=== PATIENT | male | born 1945 | race Caucasian/White ===

== ENCOUNTER 2017-03-15 20:09 | Observation (INO) | payer OTHER ==
[~2017-03-15] VITALS: Ht 172.7 cm; Wt 89.5 kg
[2017-03-15 20:15] VITALS: BP 184/89; PULSE 91; RESP 16; TEMP 98.4; O2SAT 100
--- NOTE | 2017-03-15 21:02 | RADRPT ---
EXAM DATE/TIME: 03/15/2017 20:33 [place] COMPARISON: No previous studies available for comparison. INDICATIONS : Left side chest pain. MEDICAL HISTORY : None. SURGICAL HISTORY : None. ENCOUNTER: Initial ACUITY: 2 weeks PAIN SCORE: 4/10 LOCATION: Left chest FINDINGS: PA and lateral views of the chest demonstrate the lungs to be symmetrically aerated without evidence of mass, infiltrate or effusion. The cardiomediastinal contours are unremarkable. Osseous structure s are intact. CONCLUSION: 1. No active disease. Hua Velasquez MD on March 15, 2017 at 20:59 Board Certified Radiologist. This report was verified electronically.
[2017-03-15] MEDS ORDERED: MULTTAB67 PO (21:12)
[2017-03-15] MEDS ORDERED: FISHCAP4 PO (21:12)
[2017-03-15 21:13] VITALS: BP 169/116; PULSE 80; RESP 18; O2SAT 100
[2017-03-15 21:33] LABS: AUTOMATED NEUTROPHIL # 4.8 TH/MM3 (1.8-7.7); BASOPHIL # 0.1 TH/MM3 (0-0.2); BASOPHIL % 0.9 % (0.0-2.0); EOSINOPHIL # 0.3 TH/MM3 (0-0.4); EOSINOPHIL % 3.7 % (0.0-4.0); HEMATOCRIT 41.7 % (39.0-51.0); HEMOGLOBIN 14.7 GM/DL (13.0-17.0); LYMPH % 22.3 % (9.0-44.0); LYMPHOCYTE # 1.7 TH/MM3 (1.0-4.8); MEAN CELL VOLUME 94.3 FL (80.0-100.0); MEAN CORPUSCULAR HEMOGLOBIN 33.2 PG (27.0-34.0); MEAN CORPUSCULAR HGB CONC 35.2 % (32.0-36.0); MEAN PLATELET VOLUME 7.2 FL (7.0-11.0); MONO % 9.9 % (0.0-8.0); MONOCYTE # 0.8 TH/MM3 (0-0.9); NEUT % 63.2 % (16.0-70.0); PLATELET COUNT 276 TH/MM3 (150-450); RED BLOOD COUNT 4.42 MIL/MM3 (4.50-5.90); RED CELL DISTRIBUTION WIDTH 13.1 % (11.6-17.2); WHITE BLOOD COUNT 7.6 TH/MM3 (4.0-11.0)
[2017-03-15 21:37] LABS: PROTHROMBIN TIME - PATIENT 10.5 SEC (9.8-11.6)
[2017-03-15 21:43] LABS: BICARBONATE 30.4 MEQ/L (21.0-32.0); CALCIUM 8.9 MG/DL (8.5-10.1); CREATININE 1.02 MG/DL (0.60-1.30); MAGNESIUM 2.3 MG/DL (1.5-2.5)
[2017-03-15 21:48] LABS: TROPONIN I 0.02 NG/ML (0.02-0.05)
--- NOTE | 2017-03-15 22:26 | PD ---
HPI . Chest pain Chief Complaint: Chest Pain Time Seen by Provider: 21:02 Travel History International Travel<30 days: No Contact w/Intl Traveler<30days: No Traveled to known affect area: No History of Present Illness HPI This patient presents with the chief complaint of chest pain. Onset was several weeks ago. The pain comes and goes. He states that he does not have the pain daily but can sometimes have pain 2 or 3 times a day. He states that it last a varying amount of time. He has not noted any association with activity. He describes the pain as an aching sensation. He states that it is very mild. He denies any associated shortness of breath, nausea or diaphoresis. He does complain with some left shoulder pain but believes that he has a torn rotator cuff. Patient reports no chronic medical problems. He is a reformed smoker 30 years. He states that there was nothing really different today that brought into the hospital. He just decided that it was time for her to be checked out. PFSH Past Medical History Medical History: Denies Significant Hx Tetanus Vaccination: Unknown Influenza Vaccination: No Past Surgical History Other Surgery: Yes (hernia ) Social History Alcohol Use: No Tobacco Use: No Substance Use: No Allergies-Medications (Allergen,Severity, Reaction): Coded Allergies: No Known Allergies (Verified Allergy, Unknown, 03/15/17) Reported Meds & Prescriptions Reported Meds & Active Scripts Active Reported Fish Oil + D3 (Fish Oil-Cholecalciferol) 1,200-1,000 Mg-Unit Cap 1 Cap PO DAILY Multiple Vitamin 1 Tab 1 Tab PO DAILY Review of Systems Except as stated in HPI: all other systems reviewed are Neg Cardiovascular: Positive: Chest Pain or Discomfort Respiratory: No: Shortness of Breath Gastrointestinal: No: Nausea, Vomiting Musculoskeletal: Positive: Arthralgias Physical Exam Narrative GENERAL: Older man who is in no acute distress. SKIN: warm/dry. Normal color and turgor. HEAD: Normocephalic. Atraumatic. EYES: Pupils equal and round. No scleral icterus. No injection or drainage. ENT: No nasal bleeding or discharge. Mucous membranes pink and moist. NECK: Trachea midline. Full range of motion without pain.. CARDIOVASCULAR: Regular rate and rhythm. Heart sounds are normal. RESPIRATORY: No accessory muscle use. Clear to auscultation. Breath sounds equal bilaterally. GASTROINTESTINAL: Abdomen soft. Nontender. Bowel sounds present. Nondistended. MUSCULOSKELETAL: No obvious deformities. NEUROLOGICAL: Awake and alert. No obvious cranial nerve deficits. Motor grossly within normal limits. Normal speech. PSYCHIATRIC: Appropriate mood and affect; insight and judgment normal. Data Data Last Documented VS Vital Signs Date Time Temp Pulse Resp B/P (MAP) Pulse Ox O2 Delivery O2 Flow Rate FiO2 03/15/17 21:13 80 18 169/116 (133) 100 Room Air 03/15/17 20:15 98.4 Orders Orders Electrocardiogram (03/15/17 20:21) Basic Metabolic Panel (Bmp) (03/15/17 20:21) Ckmb (Isoenzyme) Profile (03/15/17 20:21) Complete Blood Count With Diff (03/15/17 20:21) Magnesium (Mg) (03/15/17 20:21) Prothrombin Time / Inr (Pt) (03/15/17 20:21) Act Partial Throm Time (Ptt) (03/15/17 20:21) Troponin I (03/15/17 20:21) Chest, Pa & Lat (03/15/17 20:21) Electrocardiogram (03/15/17 ) Labs Laboratory Tests Test 03/15/17 20:57 White Blood Count 7.6 TH/MM3 Red Blood Count 4.42 MIL/MM3 Hemoglobin 14.7 GM/DL Hematocrit 41.7 % Mean Corpuscular Volume 94.3 FL Mean Corpuscular Hemoglobin 33.2 PG Mean Corpuscular Hemoglobin Concent 35.2 % Red Cell Distribution Width 13.1 % Platelet Count 276 TH/MM3 Mean Platelet Volume 7.2 FL Neutrophils (%) (Auto) 63.2 % Lymphocytes (%) (Auto) 22.3 % Monocytes (%) (Auto) 9.9 % Eosinophils (%) (Auto) 3.7 % Basophils (%) (Auto) 0.9 % Neutrophils # (Auto) 4.8 TH/MM3 Lymphocytes # (Auto) 1.7 TH/MM3 Monocytes # (Auto) 0.8 TH/MM3 Eosinophils # (Auto) 0.3 TH/MM3 Basophils # (Auto) 0.1 TH/MM3 CBC Comment DIFF FINAL Differential Comment Prothrombin Time 10.5 SEC Prothromb Time International Ratio 1.0 RATIO Activated Partial Thromboplast Time 23.6 SEC Blood Urea Nitrogen 17 MG/DL Creatinine 1.02 MG/DL Random Glucose 149 MG/DL Calcium Level 8.9 MG/DL Magnesium Level 2.3 MG/DL Sodium Level 140 MEQ/L Potassium Level 3.7 MEQ/L Chloride Level 105 MEQ/L Carbon Dioxide Level 30.4 MEQ/L Anion Gap 5 MEQ/L Estimat Glomerular Filtration Rate 72 ML/MIN Total Creatine Kinase 62 U/L Troponin I 0.02 NG/ML MDM Medical Decision Making Medical Screen Exam Complete: Yes Emergency Medical Condition: Yes Medical Record Reviewed: Yes (this patient has no old records here) Interpretation(s) Initial EKG has a normal sinus rhythm with minimal inferior ST elevation. Repeat EKG shows no ST segment elevation. Differential Diagnosis Differential diagnosis of chest pain includes but is not limited to musculoskeletal pain, pulmonary embolism, acute coronary syndrome, pneumonia, pleurisy Narrative Course This patient presents with intermittent chest pain for the last several weeks. CBC & BMP Diagram 03/15/17 20:57 Calcium Level 8.9, Magnesium Level 2.3 Initial troponin is 0.02. Last Impressions Chest X-Ray 03/15/172020 Signed Impressions: Service Date/Time: Wednesday, March 15, 2017 20:33 - CONCLUSION: 1. No active disease. Hua Velasquez MD This patient is agreeable to admission to the chest pain center for further evaluation of his intermittent chest pain. Diagnosis Primary Impression: Chest pain Qualified Codes: R07.9 - Chest pain, unspecified Admitting Information Admitting Physician Requests: Observation Condition: Stable Shakila Benton MD Mar 15, 2017 22:26
[2017-03-15] MEDS ORDERED: MORPHINE SULFATE 4 MG/ML INJ IV PUSH PRN (22:30)
[2017-03-15] MEDS ORDERED: SODIUM CHLORIDE 0.9% FLUSH 10 ML FLUSH IV FLUSH PRN (22:30)
[2017-03-15] MEDS ORDERED: ONDANSETRON HCL 4 MG/2 ML VIAL IV PUSH PRN (22:30)
[2017-03-15] MEDS ORDERED: NITROGLYCERIN 0.4 MG SL 25 TABS/BTL SL PRN (22:30)
[2017-03-15 23:04] VITALS: BP 176/87; PULSE 67; RESP 16; O2SAT 98
[2017-03-15] MEDS: SODIUM CHLORIDE 0.9% FLUSH 10 ML FLUSH IV FLUSH SCH (23:12)
[2017-03-15] MEDS: METOPROLOL TARTRATE 25 MG TAB PO SCH (23:13)
[2017-03-15] MEDS ORDERED: IOHEXOL 350 MG/ML 50 ML BTL (for Cath Lab) OTHER ONE (23:45)
[2017-03-15] MEDS ORDERED: IOHEXOL 350 MG/ML 100 ML BTL (for Cath Lab) OTHER ONE (23:45)
[2017-03-16] VITALS (19 sets, daily range): BP systolic 117–164; BP diastolic 58–87; PULSE 50–117; RESP 16–20; TEMP 97.8–98.7; O2SAT 95–98
--- NOTE | 2017-03-16 00:22 | EKG ---
Date Performed: 03/15/2017 Time Performed: 20:46:55 PTAGE: 71 years EKG: Sinus rhythm PROBABLE INFERIOR MYOCARDIAL INFARCTION ABNORMAL ECG NO PREVIOUS TRACING DOCTOR: Nakul English Interpretating Date/Time 03/16/2017 00:20:48
[2017-03-16 04:12] LABS: TROPONIN I 0.16 NG/ML (0.02-0.05)
[2017-03-16 08:47] LABS: TROPONIN I 0.23 NG/ML (0.02-0.05)
[2017-03-16] MEDS ORDERED: ASPIRIN 325 MG TAB PO SCH (09:00)
[2017-03-16] MEDS: METOPROLOL TARTRATE 25 MG TAB PO SCH ×2 (09:04→21:00)
[2017-03-16] MEDS: SODIUM CHLORIDE 0.9% FLUSH 10 ML FLUSH IV FLUSH SCH ×2 (09:04→21:00)
--- NOTE | 2017-03-16 09:20 | HHI.HP ---
[facility] Chico Esquivel MD Admission Diagnosis chest pain Diagnoses: Chief Complaint: chest pain Travel History International Travel<30 Days: No Contact w/Intl Traveler <30 Da: No Traveled to Known Affected Are: No History of Present Illness Written by Andie Centeno, acting as scribe for Dr. Dlil on 03/16/17 at 09: 14. 71-year-old male with history of prior tobacco use quit 30 years ago, otherwise healthy, presents with several weeks of intermittent chest pains. The chest pain is located at the left anterior chest without radiation, described as intermittent 1-2 out of 10 "achy" pain; no associated dyspnea, diaphoresis, or nausea/vomiting. The duration of the pain varies, could last few minutes to an hour. He does not notice the pain worse with any exertion. He states the pain can come on at any time. He did not try any medications for relief of the pain. He also reports chronic left shoulder pain [id number] after a torn rotator cuff. He denies any recent injury. He denies any fever/chills, cough, congestion, leg swelling, weight gain, abdominal pain, or urinary complaints. Denies any recent travel. He denies any history of hypertension or diabetes. He denies any other medical complaints at this time. Review of Systems Except as stated in HPI: all other systems reviewed are Neg Past Family Social History Past Medical History Chronic left shoulder pain secondary to rotator cuff injury Past Surgical History Umbilical hernia repair Right eye cataract surgery Reported Medications Fish Oil + D3 (Fish Oil-Cholecalciferol) 1,200-1,000 Mg-Unit Cap 1 Cap PO DAILY Multiple Vitamin 1 Tab 1 Tab PO DAILY Allergies: Coded Allergies: No Known Allergies (Verified Allergy, Unknown, 03/15/17) Active Ordered Medications Current Medications Medications (Trade) Dose Ordered Sig/Rambo Route Start Time Stop Time Status Last Admin (NS Flush) 2 ml UNSCH PRN IV FLUSH 03/15/17 22:30 (NS Flush) 2 ml BID IV FLUSH 03/15/17 22:30 03/16/17 09:04 (Morphine Inj) 2 mg Q4H PRN IV PUSH 03/15/17 22:30 (Zofran Inj) 4 mg Q6H PRN IV PUSH 03/15/17 22:30 (Lopressor) 25 mg Q12H PO 03/15/17 22:30 03/16/17 09:04 (Nitrostat Sl) 0.4 mg Q5M PRN SL 03/15/17 22:30 (Aspirin) 325 mg DAILY PO 03/16/17 09:00 03/16/17 09:05 Family History Grandfather with stroke Denies any family history of heart disease Social History Smoked tobacco 3/4 to 1PPD for 20 years, quit 30years ago Denies any alcohol or illicit drug use Physical Exam Vital Signs Vital Signs Date Time Temp Pulse Resp B/P (MAP) Pulse Ox O2 Delivery O2 Flow Rate FiO2 03/16/17 07:56 74 03/16/17 07:53 97.8 65 18 144/77 (99) 95 03/16/17 02:49 62 03/16/17 02:47 98.2 117 20 164/83 (110) 98 03/15/17 23:04 67 16 176/87 (116) 98 Room Air 03/15/17 21:13 100 21 03/15/17 21:13 80 18 169/116 (133) 100 Room Air 03/15/17 20:15 98.4 91 16 184/89 (120) 100 Room Air Physical Exam GENERAL: Well-nourished, well-developed male patient in [facility]. SKIN: Warm and dry. No rash. HEAD: Normocephalic. Atraumatic. EYES: Pupils equal and round. No scleral icterus. No injection or drainage. ENT: No nasal bleeding or discharge. Mucous membranes pink and moist. NECK: Supple. Trachea midline. CARDIOVASCULAR: Regular rate and rhythm. S1, S2 noted. No murmur appreciated. RESPIRATORY: No accessory muscle use. Clear to auscultation. Breath sounds equal bilaterally. GASTROINTESTINAL: Abdomen soft, non-tender, nondistended. Normoactive bowel sounds x4. MUSCULOSKELETAL: No obvious deformities. Extremities without clubbing, cyanosis , or edema. NEUROLOGICAL: Awake and alert. No obvious cranial nerve deficits. Motor grossly within normal limits. Moves all extremities spontaneously. Normal speech. PSYCHIATRIC: Appropriate mood and affect; insight and judgment normal. Laboratory Laboratory Tests Test 03/15/17 20:57 03/16/17 03:30 03/16/17 08:12 White Blood Count 7.6 Red Blood Count 4.42 Hemoglobin 14.7 Hematocrit 41.7 Mean Corpuscular Volume 94.3 Mean Corpuscular Hemoglobin 33.2 Mean Corpuscular Hemoglobin Concent 35.2 Red Cell Distribution Width 13.1 Platelet Count 276 Mean Platelet Volume 7.2 Neutrophils (%) (Auto) 63.2 Lymphocytes (%) (Auto) 22.3 Monocytes (%) (Auto) 9.9 Eosinophils (%) (Auto) 3.7 Basophils (%) (Auto) 0.9 Neutrophils # (Auto) 4.8 Lymphocytes # (Auto) 1.7 Monocytes # (Auto) 0.8 Eosinophils # (Auto) 0.3 Basophils # (Auto) 0.1 CBC Comment DIFF FINAL Differential Comment Prothrombin Time 10.5 Prothromb Time International Ratio 1.0 Activated Partial Thromboplast Time 23.6 Blood Urea Nitrogen 17 Creatinine 1.02 Random Glucose 149 Calcium Level 8.9 Magnesium Level 2.3 Sodium Level 140 Potassium Level 3.7 Chloride Level 105 Carbon Dioxide Level 30.4 Anion Gap 5 Estimat Glomerular Filtration Rate 72 Total Creatine Kinase 62 66 59 Troponin I 0.02 0.16 0.23 Result Diagram: 03/15/17205603/15/172056 Imaging Last Impressions Chest X-Ray 03/15/172020 Signed Impressions: Service Date/Time: Wednesday, March 15, 2017 20:33 - CONCLUSION: 1. No active disease. Hua Velasquez MD Caprini VTE Risk Assessment Caprini VTE Risk Assessment: Mod/High Risk (score >= 2) Caprini Risk Assessment Model Point Value = 1 Point Value = 2 Point Value = 3 Point Value = 5 Age 41-60 Minor surgery BMI > 25 kg/m2 Swollen legs Varicose veins or History of unexplained or recurrent spontaneous Oral contraceptives or hormone replacement Sepsis (< 1 month) Serious lung disease, including pneumonia (< 1 month) Abnormal pulmonary function Acute myocardial infarction Congestive heart failure (< 1 month) History of inflammatory bowel disease Medical patient at bed rest Age 61-74 Arthroscopic surgery Major open surgery (> 45 min) Laparoscopic surgery (> 45 min) Malignancy Confined to bed (> 72 hours) Immobilizing plaster cast Central venous access Age >= 75 History of VTE Family history of VTE Factor V Leiden Prothrombin [id number] Lupus anticoagulant Anticardiolipin antibodies Elevated serum homocysteine Heparin-induced thrombocytopenia Other congenital or acquired thrombophilia Stroke (< 1 month) Elective arthroplasty Hip, pelvis, or leg fracture Acute spinal cord injury (< 1 month) Prophylaxis Regimen Total Risk Factor Score Risk Level Prophylaxis Regimen 0-1 Low Early ambulation 2 Moderate Order ONE of the following: *Sequential Compression Device (SCD) *Heparin 5000 units SQ BID 3-4 Higher Order ONE of the following medications: *Heparin 5000 units SQ TID *Enoxaparin/Lovenox 40 mg SQ daily (WT < 150 kg, CrCl > 30 mL/min) *Enoxaparin/Lovenox 30 mg SQ daily (WT < 150 kg, CrCl > 10-29 mL/min) *Enoxaparin/Lovenox 30 mg SQ BID (WT < 150 kg, CrCl > 30 mL/min) AND/OR *Sequential Compression Device (SCD) 5 or more Highest Order ONE of the following medications: *Heparin 5000 units SQ TID (Preferred with Epidurals) *Enoxaparin/Lovenox 40 mg SQ daily (WT < 150 kg, CrCl > 30 mL/min) *Enoxaparin/Lovenox 30 mg SQ daily (WT < 150 kg, CrCl > 10-29 mL/min) *Enoxaparin/Lovenox 30 mg SQ BID (WT < 150 kg, CrCl > 30 mL/min) AND *Sequential Compression Device (SCD) Assessment and Plan Problem List: (1) NSTEMI (non-ST elevated myocardial infarction) ICD Code: I21.4 - Non-ST elevation (NSTEMI) myocardial infarction (2) Chest pain ICD Code: R07.9 - Chest pain, unspecified Status: Acute Assessment and Plan 71-year-old male with history of prior tobacco use quit 30 years ago, otherwise healthy, presents with several weeks of intermittent chest pains. NSTEMI: Chest pain with elevated troponins 0.02 --> 0.16 --> 0.23. EKG reviewed , shows some changes in inferior leads, otherwise no acute ST elevation/ depression. -Give aspirin, metoprolol, statin, nitro prn, IV morphine prn, O2 prn -Check lipid panel, HgbA1c -Monitor on telemetry -Consult cardiology, Dr. Velasquez plan for cardiac catheterization Hypertension: BP elevated at 184/89 upon arrival. No history of hypertension per patient. -Started on metoprolol 25mg bid as above -Monitor BP, adjust antihypertensives as needed DVT Prophylaxis: teds/SCDs Discussed Condition With Patient, Nurse, Charge Nurse This note was transcribed by scott Centeno. I, Dr. Damien Dill personally performed the history, physical exam, and medical decision making; and confirmed the accuracy of the information in the transcribed note. Authenticated by Dr. Damien Dill on 03/16/17 at 09:22. Problem Qualifiers (1) Chest pain: Qualified Codes: R07.9 - Chest pain, unspecified Andie Centeno PA-C Mar 16, 2017 09:20 Damien Dill MD Mar 16, 2017 09:22
[2017-03-16 10:18] LABS: CHOLESTEROL/ HDL RATIO 3.26 RATIO; HDL CHOLESTEROL 49.6 MG/DL (40.0-60.0)
--- NOTE | 2017-03-16 10:35 | PD.CONS ---
HPI Consult Requested By Primary Care Physician Chico Esquivel MD History of Present Illness 71-year-old male former smoker, otherwise healthy, presents with several weeks of intermittent chest pains. The chest pain is located at the left anterior chest with radiation to left shoulder described as intermittent 1-2/10 achy pain ; no associated dyspnea, diaphoresis, or nausea/vomiting. The duration of the pain varies, could last few minutes to an hour. He does not notice the pain worse with any exertion. He denies any recent injury. He denies any fever/chills , cough, congestion, leg swelling, weight gain, abdominal pain, or urinary complaints. Denies any recent travel. He denies any history of hypertension or diabetes. He does reports increase levels of stress mostly due to his . EKG SR with inferior ST changes and Troponin trending up. Review of Systems Consitutional: DENIES: Fatigue, Fever, Chills, Weight gain, Weight loss Eyes: DENIES: Amaurosis Fugax, Change in vision HEENT: DENIES: Lightheadedness, Change in hearing Cardiovascular: COMPLAINS OF: See HPI, Chest pain, DENIES: Palpitations, Syncope, Tachycardia Gastrointestinal: DENIES: Nausea, Vomiting, Change in bowel habits, Reflux, Bloody stools, Melena Genitourinary: DENIES: Urinary incontinence, Difficulty voiding Integumentary: DENIES: Rash Neurologic: DENIES: Tingling or numbness, Memory problems, Poor Balance, Stroke symptoms Musculoskeletal: DENIES: Joint pain, Muscle pain, Limited range of motion, Back pain Psychiatric: DENIES: Anxiety, Depression, Sleep disturbances Hematologic: DENIES: Bruising tendencies, Bleeding tendencies Endocrine: DENIES: Weight gain, Weight loss, Thyroid disease Past Family Social History Allergies: Coded Allergies: No Known Allergies (Verified Allergy, Unknown, 03/15/17) Past Medical History Chronic left shoulder pain Past Surgical History Umbilical hernia repair Right eye cataract surgery Reported Medications Reported Meds & Active Scripts Active Reported Fish Oil + D3 (Fish Oil-Cholecalciferol) 1,200-1,000 Mg-Unit Cap 1 Cap PO DAILY Multiple Vitamin 1 Tab 1 Tab PO DAILY Active Ordered Medications Current Medications Medications (Trade) Dose Ordered Sig/Rambo Route Start Time Stop Time Status Last Admin (NS Flush) 2 ml UNSCH PRN IV FLUSH 03/15/17 22:30 (NS Flush) 2 ml BID IV FLUSH 03/15/17 22:30 03/16/17 09:04 (Morphine Inj) 2 mg Q4H PRN IV PUSH 03/15/17 22:30 (Zofran Inj) 4 mg Q6H PRN IV PUSH 03/15/17 22:30 (Lopressor) 25 mg Q12H PO 03/15/17 22:30 03/16/17 09:04 (Nitrostat Sl) 0.4 mg Q5M PRN SL 03/15/17 22:30 (Aspirin) 325 mg DAILY PO 03/16/17 09:00 03/16/17 09:05 Family History Grandfather with stroke Denies any family history of heart disease Social History Smoked tobacco 3/4 to 1PPD for 20 years, quit 30years ago Denies any alcohol or illicit drug use Physical Exam Vital Signs Vital Signs Date Time Temp Pulse Resp B/P (MAP) Pulse Ox O2 Delivery O2 Flow Rate FiO2 03/16/17 07:56 74 03/16/17 07:53 97.8 65 18 144/77 (99) 95 03/16/17 02:49 62 03/16/17 02:47 98.2 117 20 164/83 (110) 98 03/15/17 23:04 67 16 176/87 (116) 98 Room Air 03/15/17 21:13 100 21 03/15/17 21:13 80 18 169/116 (133) 100 Room Air 03/15/17 20:15 98.4 91 16 184/89 (120) 100 Room Air Physical Exam GENERAL: Well-nourished, well-developed patient. SKIN: Warm and dry. HEAD: Normocephalic. EYES: No scleral icterus. No injection or drainage. NECK: Supple, trachea midline. No JVD or lymphadenopathy. CARDIOVASCULAR: Regular rate and rhythm without murmurs, gallops, or rubs. RESPIRATORY: Breath sounds equal bilaterally. No accessory muscle use. GASTROINTESTINAL: Abdomen soft, non-tender, nondistended. EXTREMITIES: No cyanosis, or edema. NEUROLOGICAL: Awake, alert, and oriented x 3. Non-focal. Laboratory Laboratory Tests Test 03/15/17 20:57 03/16/17 03:30 03/16/17 08:12 White Blood Count 7.6 Red Blood Count 4.42 Hemoglobin 14.7 Hematocrit 41.7 Mean Corpuscular Volume 94.3 Mean Corpuscular Hemoglobin 33.2 Mean Corpuscular Hemoglobin Concent 35.2 Red Cell Distribution Width 13.1 Platelet Count 276 Mean Platelet Volume 7.2 Neutrophils (%) (Auto) 63.2 Lymphocytes (%) (Auto) 22.3 Monocytes (%) (Auto) 9.9 Eosinophils (%) (Auto) 3.7 Basophils (%) (Auto) 0.9 Neutrophils # (Auto) 4.8 Lymphocytes # (Auto) 1.7 Monocytes # (Auto) 0.8 Eosinophils # (Auto) 0.3 Basophils # (Auto) 0.1 CBC Comment DIFF FINAL Differential Comment Prothrombin Time 10.5 Prothromb Time International Ratio 1.0 Activated Partial Thromboplast Time 23.6 Blood Urea Nitrogen 17 Creatinine 1.02 Random Glucose 149 Calcium Level 8.9 Magnesium Level 2.3 Sodium Level 140 Potassium Level 3.7 Chloride Level 105 Carbon Dioxide Level 30.4 Anion Gap 5 Estimat Glomerular Filtration Rate 72 Total Creatine Kinase 62 66 59 Troponin I 0.02 0.16 0.23 Triglycerides Level 80 Cholesterol Level 162 LDL Cholesterol 96 HDL Cholesterol 49.6 Cholesterol/HDL Ratio 3.26 Result Diagram: 03/15/17205603/15/172056 Imaging Last Impressions Chest X-Ray 03/15/172020 Signed Impressions: Service Date/Time: Wednesday, March 15, 2017 20:33 - CONCLUSION: 1. No active disease. Hua Velasquez MD Assessment and Plan Problem List: (1) Chest pain ICD Codes: R07.9 - Chest pain, unspecified Status: Acute Plan: 71 y/o M with signs and symptoms concerning for ACS. He remains chest pain free and hemodynamically stable. Recommendation: Keep NPO for LHC +/- PCI ASA Heparin drip Risk benefits of LHC +/- PCI including but not limited to neurovascular trauma, bleeding, renal failure, stroke, emergent cardiac surgery and , have been explain to patient. He understands and agreed to proceed. Thank for the opportunity to participate in the care of this patient Further therapy to be determine Problem Qualifiers (1) Chest pain: Qualified Codes: R07.9 - Chest pain, unspecified Boris Hathaway MD Mar 16, 2017 10:35
[2017-03-16] MEDS ORDERED: HEPARIN-NS/PF INJ 1,000 ML ONE (11:51)
[2017-03-16] MEDS ORDERED: NITROGLYCERIN INJ 5 ML ONE (11:52)
[2017-03-16] MEDS ORDERED: MIDAZOLAM HCL 2 MG/2 ML VIAL ONE ×2 (11:52→12:09)
[2017-03-16] MEDS ORDERED: HEPARIN SODIUM - IV 10,000 UNITS/10 ML VIAL ONE (11:52)
[2017-03-16] MEDS ORDERED: VERAPAMIL HCL 5 MG/2 ML VIAL ONE (11:57)
[2017-03-16] MEDS ORDERED: TICAGRELOR 90 MG TAB PO ONE ×2 (13:08→14:30)
[2017-03-16] MEDS ORDERED: SODIUM CHLOR 0.9% 1000 ML INJ 1,000 ML IV SCH (13:19)
--- NOTE | 2017-03-16 13:22 | CATHPROC ---
gir[employer] HIS Report Study Information Study Number Admission Scheduled Start Study Start [id number] Mar 15 2017 11:44PM 03/16/2017 Mar 16 2017 11:17AM [facility] Cardiac Catheterization Admit Source Facility Department Emergency department [facility] - Paper Handler Physician and Clinical Staff Initial Boris John E Learning Designer Aleshia Ashton,MARIA ISABEL E Learning Designer Coretta Navarrete BSN Recorder Miguelangel Haywood,RT(R) Scrub Gurinder Monae,RT(R) Procedures Performed Procedure Location (Site) Vessel Name Coronary Angiograms LCA Left Coronary Coronary Angiograms RCA Right Coronary Drug Eluting Inflatio Drug Eluting Inflatio RCA Mid Right Coronary L Heart Cath LV Gram-hand inj. LV LV Ventricle PTCA RCA Mid Right Coronary Wire insertion Fem Art (right) Femoral Art Wire insertion Radial (right) Radial Art. Equipment Time Brooch And Bracelet Maker Description Size Mfg Part Number Used/Scraped COPILOT VALVE, BLEEDBACK [id number] 12:04 [employer] Used CONTROL *[id number] WIRE, BALANCE MIDDLEWEIGHT [id number] 12:53 [employer] 190CM Used 190CM *[id number] TRANSDUCER, TRUWAVE [id number] 11:18 RAY RUBIN * Used W/STOCKCOCK *[id number] BALLOON, 1.2 12MM EMERGE 12:28 [employer] 1.2 12MM [id number] [place] [id number] 12:48 [employer] BALLOON, 2.0 12MM EMERGE MR 2.0 12MM Used *[id number] 12:42 [employer] BALLOON, 2.5 12MM EMERGE MR 2.5 12MM Used *[id number] 12:42 [employer] BALLOON, 2.5 12MM EMERGE MR 2.5 12MM Used *[id number] [address] 12:18 [employer] BALLOON, 2.5 12MM EMERGE MR 2.5 12MM Used *[id number] [address] 12:38 [employer] BALLOON, 3.0 12MM EMERGE MR 3.0 12MM Used *[id number] 12:20 [employer] CATHETER, FR6 GUIDEZILLA II FR 6 [id number] Used 12:31 [employer] STENT, SYNERGY 3.5 X 16MM [id number] Used [id number] 12:17 [employer] WIRE, MARVEL 190CM 190CM Used *[id number] 85112-970 12:09 [employer] WIRE, ANAHYURAI 190CM 190CM Used *[id number] *[phone] *[id number] 11:18 MEDLINE [employer] PACK, CCL CUSTOM * Used *[id number] 11:18 [employer] SUPPORT, ARTERIAL ADULT 73235 *8588760 Used [id number] 11:55 MEDTRONIC JR 4.0 DXTERITY CATHETER FR 5 Used *[id number] 12:36 VT Silicon 30 JOANA INDEFLATOR Used *[id number] BAND, RADIAL COMPRESSION TR [id number] 13:04 VT Silicon 29CM Used LARGE 29 *[id number] BAND, RADIAL COMPRESSION TR [id number] 12:12 VT Silicon 29CM Used LARGE 29 *[id number] 11:18 VT Silicon WIRE, 3MMJ .035 180CM 180CM Used *[id number] 11:18 NAMIC MANIFOLD, 4 PORT * Used *5402040 11:18 NYCOMED OMNIPAQUE, 350 MG, 150ML 150ML [id number] Used [id number] 11:18 [facility] BLANKET,WARM AIR CCL * Used *[id number] SHEATH, FR6 TRANSRADIAL [id number] 11:18 The Gluten Free Gourmet FR 6 Used SLENDER 10CM *[id number] Equipment Model, Serial, Lot Number and Expiration Data Description Model Number Serial Number Lot Number Expiration Date BALLOON, 2.0 12MM EMERGE MR [id number] 10-05-2019 BALLOON, 2.5 12MM EMERGE MR [id number] 10-19-2019 BALLOON, 2.5 12MM EMERGE MR [id number] 10-19-2019 BALLOON, 2.5 12MM EMERGE MR [id number] 05-24-2019 BALLOON, 3.0 12MM EMERGE MR [id number] 05-26-2019 CATHETER, FR6 GUIDEZILLA II [id number] 12-30-2018 STENT, SYNERGY [id number] 12-20-2017 WIRE, ANAHYURAI 190CM [id number] 11-16-2019 History: Current Medications Medication Dosage/Unit Route Frequency Last Date/Time Taken ASA LOPRESSOR History: Allergies Allergy Reaction No Known Allergies History: Risk Factors Family History of Hypertension Dyslipidemia Previous AL Previous Heart Failure Premature CAD No No No No No Prior Valve Prior PCI Prior CABG Surgery No No No Cerebrovascular Peripheral Artery Chronic Lung On Dialysis Diabetes Disease Disease Disease No No No No No History: Symptoms/Diagnosis Selection Items Chest pain History: Stress Tests Stress or Imaging Studies Performed No History: Other Current Smoker Method Quit Packs a Day Years Used Pack Years No Cigarettes 30 Years Ago 1 20 20 Labs Hgb (g/dl) Hct (%) WBC (l/cumm) Platelets (thousands) 11.60-17.00 35.00-51.00 4.00-11.00 150.00-450.00 14.7 41.7 7.6 276 Glucose (mg/dl) BUN (mg/dl) Creatinine (mg/dl) BUN:Creatinine (1:x) 74.00-106.00 7.00-18.00 0.50-1.30 10.00-20.00 149 17 1.0 17 Na (meq/l) K (meq/l) 136.00-145.00 3.50-5.10 140 3.7 INR (PTT:PT) 0.90-1.10 1 Troponin I (ng/ml) Troponin T (ng/ml) CPK (u/l) 0.02-0.05 0.40-2.10 26.00-308.00 0.16 0.23 62 Medication Medication Total Dose (Bolus/Oral) Medication Total Dosage/Unit 1% XYLOCAINE 20 mL BRILLINTA 180 mg FENTANYL 100 mcg HEPARIN 5000 units NTG (IC) 200 mcg OXYGEN 2 l/min RADIAL COCKTAIL 5 mL (Bolus) VERSED 4 mg Medications (Bolus/Oral) Medication Time Given Dosage/Unit Administered By Reason VERSED 03/16/2017 11:58:31 AM 2 mg Alehsia Ashton 2 mg VERSED given in lab by Aleshia Ashton, RN via Peripheral IV. FENTANYL 03/16/2017 11:59:41 AM 50 mcg Aleshia Ashton 50 mcg FENTANYL given in lab by Aleshia Ashton, MARIA ISABEL via Peripheral IV. 1% XYLOCAINE 03/16/2017 11:59:51 AM 20 mL Velasquez-Toyin, Boris 20 mL 1% XYLOCAINE given in lab by Boris Hathaway via Subcutaneous. RADIAL COCKTAIL 03/16/2017 12:00:20 PM 5 mL (Bolus) Velasquez-Toyin, Boris 5 mL (Bolus) RADIAL COCKTAIL given by Boris Hathaway in Right Radial via Radial. Using [Solution N yareli]. 2.5 verapamil, 2500 heparin , 200 nitro HEPARIN 03/16/2017 12:10:20 PM 5000 units Aleshia Ashton 5000 units HEPARIN given by Aleshia Ashton RN via Peripheral IV. VERSED 03/16/2017 12:11:22 PM 2 mg Aleshia Ashton 2 mg VERSED given by Aleshia Ashton RN via Peripheral IV. FENTANYL 03/16/2017 12:12:04 PM 50 mcg Aleshia Ashton 50 mcg FENTANYL given by Aleshia Ashton RN via Peripheral IV. OXYGEN 03/16/2017 12:13:43 PM 2 l/min Aleshia Ashton 2 l/min OXYGEN given by Aleshia Ashton RN via Nasal. NTG (IC) 03/16/2017 12:30:24 PM 100 mcg Gurinder Monae 100 mcg NTG (IC) given in lab by Gurinder Monae RT(R) in Right Radial via Intra-coronary. NTG (IC) 03/16/2017 1:02:49 PM 100 mcg Gurinder Monae 100 mcg NTG (IC) given in lab by Gurinder Monae RT(R) via Intra-coronary. BRILLINTA 03/16/2017 1:10:46 PM 180 mg Coretta Nvaarrete 180 mg BRILLINTA given in lab by Coretta Navarrete BSN in Per mouth via Oral. Medication (Drip) Medication Time Given Dosage/Unit Concentration/Unit Diluent (ml) Solution IV Solutions 03/16/2017 11:35:30 AM 0 mL (IV) 500 NaCl .9 IV Solutions given in lab by Aleshia Ashton RN in Left Antecubital via Peripheral IV. Pump/Drip Joseph w = 20 ml/hr using NaCl .9. Initial Case Assessment Cardiovascular HR Rhythm NIBP Chest Pain 61 Sinus 152/79 0 Edema Present Skin color Skin None Normal Warm Dry Circulatory - Right Pulses Dorsalis Pedis Femoral Radial 2 2 2 Scale (0,1,2,3,4,d) Scale (0,1,2,3,4,d) Neurological State Oriented to time-place- Alert Moves all extremities person Respiration - General Respiration Rate SpO2 (%) O2 (lpm) (B/min) 33 97 0 Chronological Log Time Study Chronological Log 11:35:16 Patient arrived via Bed. 11:35:16 Patient Name, D.O.B, / Armband Verified By R.N. 11:35:17 Consent signed by the physician and the patient and verified by the Paper Handler staff. 11:35:18 Pre-op and post- op instructions given; patient acknowledges understanding of instructions. 11:35:18 Verbal Stimulation=2 Physical Stimulation=2 Airway=2 Respiration=2 TOTAL=8. (0=absent, 1=li mited, 2=present) 11:35:19 Presedation assessment performed by Paper Handler RN. 11:35:22 Allens test performed on the right radial and ulnar artery. 11:35:25 Patient has been NPO for Less than 6Hrs. 11:35:26 Skin Breakdown- none per patient. 11:35:27 Patient Warmer Placed on the Table. 11:35:27 Apolinar Prominences Protected 11:35:28 IV Warmer Connected To Patient. 11:35:29 A # 20 IV was noted in the Antecubital (left). Grade = 0 IV Solutions given in lab by Aleshia Ashton RN in Left Antecubital via Peripheral IV. Pump/Dr ip Flow = 20 ml/hr using 11:35:30 NaCl .9. 11:35:34 History and physical on the chart or being dictated. Assessment: Initial Case, HR=61 BPM, Rhythm=Sinus, PNWG=241/79 mmhg, Chest Pain=0, Edema=None, Color=Normal, Skin = Warm, Dry 11:46:36 Right Pulses: Patrice Ped=2, Femoral=2, Radial=2 Neurological: State=Alert, Ox3, CRAIG Respiration: Resp=33 B/min, SpO2=97 %, O2=0 lpm Vitals capture started with the following parameters, Patient=Adult, Interval=5 min, Initial Pr zhuuwq=027 mmHg, 11:46:39 Deflation Rate=5 mmHg, Cuff placed on Right Arm 11:47:00 Reference ECG taken 11:47:21 Right Radial and groin(s) prepped with 2% chlorhexidine, and draped after a 3 min. waiting time. 11:48:15 HR=62 bpm, LELF=969/79 mmhg, SpO2=98.0 %, Resp=25 B/min, Pain=0, Gilmer=10, Arora=2 11:51:32 Pressure channel 1 zeroed. 11:52:20 HR=68 bpm, UXLC=407/82 mmhg, SpO2=97.0 %, Resp=12 B/min, Pain=0, Gilmer=10, Arora=2 11:52:37 MD paged 11:55:48 MD arrived. 11:57:19 HR=60 bpm, JHOV=203/90 mmhg, SpO2=96.0 %, Resp=15 B/min, Pain=0, Gilmer=10, Arora=2 11:58:31 2 mg VERSED given in lab by Aleshia Ashton, MARIA ISABEL via Peripheral IV. Time Out. Correct patient, correct procedure, correct physician, power injector not loaded with contrast with surgical 11:59:10 team present. Time Out Concurred by MD and individual staff in procedure. 11:59:26 Case Start 11:59:41 50 mcg FENTANYL given in lab by Aleshia Ashton, MARIA ISABEL via Peripheral IV. 11:59:51 20 mL 1% XYLOCAINE given in lab by Boris Hathaway via Subcutaneous. 11:59:59 Access site was Radial Artery. A SHEATH, FR6 TRANSRADIAL SLENDER 10CM FR 6 was advanced into the Radial (right) using the Perc utaneous 12:00:00 technique. 5 mL (Bolus) RADIAL COCKTAIL given by Boris Hathaway in Right Radial via Radial. Using [Solu tion Name]. 2.5 12:00:20 verapamil, 2500 heparin , 200 nitro 12:01:20 A WIRE, 3MMJ .035 180CM 180CM was inserted via Radial (right). A JR 4.0 DXTERITY CATHETER FR 5 was advanced over a wire. OMNIPAQUE, 350 MG, 150ML 150ML was us ed for 12:01:28 injections. Recorded Pressure: LV, HR=68, Condition=Condition 1 12:02:07 (Left Ventricle) LV 112/2/4 12:02:19 HR=69 bpm, RDOL=242/69 mmhg, SpO2=92.0 %, Resp=14 B/min, Pain=0, Gilmer=10, Arora=2 12:02:41 The LV was manually injected with 10 cc's and visualized. OMNIPAQUE, 350 MG, 150ML 150ML us ed. 12:03:10 The RCA was injected and visualized at various angles. OMNIPAQUE, 350 MG, 150ML 150ML used . Recorded Pressure: Ao, HR=85, Condition=Condition 1 12:03:26 (Aorta) Ao 98/60/80 12:03:57 Catheter was removed A JL 3.5 INFINITI CATHETER FR 5 was advanced over a wire. OMNIPAQUE, 350 MG, 150ML 150ML was us ed for 12:04:05 injections. 12:05:07 The LCA was injected and visualized at various angles. OMNIPAQUE, 350 MG, 150ML 150ML used . After removing the current catheter a JR 4.0 GUIDE CATHETER FR 6 was advanced over a WIRE, 3MMJ .035 180CM 12:07:34 180CM. 12:07:46 HR=72 bpm, OBBU=770/78 mmhg, SpO2=93.0 %, Resp=13 B/min, Pain=0, Gilmer=10, Arora=2 12:10:20 5000 units HEPARIN given by Aleshia Ashton RN via Peripheral IV. 12:10:40 A WIRE, SAMURAI 190CM 190CM was inserted via Radial (right). 12:11:22 2 mg VERSED given by Aleshia Ashton, MARIA ISABEL via Peripheral IV. 12:12:04 50 mcg FENTANYL given by Aleshia Ashton, MARIA ISABEL via Peripheral IV. 12:12:19 HR=68 bpm, TAAK=999/62 mmhg, SpO2=87 %, Resp=13 B/min, Pain=0, Gilmer=10, Arora=2 12:13:43 2 l/min OXYGEN given by Aleshia Ashton, MARIA ISABEL via Nasal. 12:16:00 Wire removed 12:16:03 A wire was inserted via Fem Art (right). 12:17:16 HR=57 bpm, ZHVJ=565/64 mmhg, Resp=11 B/min, Pain=0, Gilmer=10, Arora=2 12:17:34 Interventional wire has crossed the lesion 12:18:33 A BALLOON, 2.5 12MM EMERGE MR 2.5 12MM was inserted over WIRE, MARVEL 190CM 190CM via the R CA Mid. 12:22:17 HR=57 bpm, OOGZ=103/70 mmhg, SpO2=95.0 %, Resp=11 B/min, Pain=0, Gilmer=10, Arora=2 12:23:51 Balloon Removed. 12:24:33 Activated Clotting Time Drawn 12:25:25 A BALLOON, 1.2 12MM EMERGE PUSH MR 1.2 12MM was inserted over WIRE, MARVEL 190CM 190CM via the RCA Mid. 12:27:16 HR=55 bpm, ZWUF=495/71 mmhg, Resp=13 B/min, Pain=0, Gilmer=10, Arora=2 12:28:05 Balloon Removed. 12:28:11 A BALLOON, 2.5 12MM EMERGE MR 2.5 12MM was inserted over WIRE, MARVEL 190CM 190CM via the R CA Mid. A BALLOON, 2.5 12MM EMERGE MR 2.5 12MM over a WIRE, MARVEL 190CM 190CM in the RCA Mid was infla patrica using a 12:28:52 indeflator at 12 joana for 15 sec. 12:29:49 Balloon Removed. 12:30:24 100 mcg NTG (IC) given in lab by Gurinder Monae, RT(R) in Right Radial via Intra-coronary. 12:31:06 ACT (Normal Range 90-180) = 348 A STENT, SYNERGY 3.5 X 16MM was advanced through a JR 4.0 GUIDE CATHETER FR 6 over a WIRE, LINDSAY EL 190CM 12:32:07 190CM. 12:32:19 HR=58 bpm, RPZF=898/64 mmhg, SpO2=93.0 %, Resp=12 B/min, Pain=0, Gilmer=10, Arora=2 12:33:56 Stent not deployed. Stent removed and intact. 12:34:18 A BALLOON, 2.5 12MM EMERGE MR 2.5 12MM was inserted over WIRE, MARVEL 190CM 190CM via the R CA Mid. A BALLOON, 2.5 12MM EMERGE MR 2.5 12MM over a WIRE, MARVEL 190CM 190CM in the RCA Mid was infla patrica using a 12:36:06 30 JOANA INDEFLATOR at 4 joana for 15 sec. A BALLOON, 2.5 12MM EMERGE MR 2.5 12MM over a WIRE, MARVEL 190CM 190CM in the RCA Mid was infla patrica using a 12:36:32 30 JOANA INDEFLATOR at 4 joana for 10 sec. 12:36:53 Balloon Removed. 12:37:16 HR=60 bpm, JMJQ=986/68 mmhg, SpO2=95.0 %, Resp=15 B/min A STENT, SYNERGY 3.5 X 16MM was advanced through a JR 4.0 GUIDE CATHETER FR 6 over a WIRE, LINDSAY EL 190CM 12:37:19 190CM. 12:39:18 Stent not deployed. Stent removed and intact. 12:39:34 A BALLOON, 3.0 12MM EMERGE MR 3.0 12MM was inserted over WIRE, MARVEL 190CM 190CM via the R CA Mid. 12:41:50 Balloon Removed. 12:42:17 HR=56 bpm, KVYP=785/67 mmhg, SpO2=96.0 %, Resp=14 B/min, Pain=0, Gilmer=10, Arora=2 12:42:30 A BALLOON, 2.5 12MM EMERGE MR 2.5 12MM was inserted over WIRE, MARVEL 190CM 190CM via the R CA Mid. 12:45:00 Balloon Removed. 12:45:53 A WIRE, SAMURAI 190CM 190CM was inserted via Radial (right). second wire added 12:47:18 HR=56 bpm, JJIK=321/62 mmhg, Resp=13 B/min, Pain=0, Gilmer=10, Arora=2 12:48:13 samurai Wire removed 12:48:38 A BALLOON, 2.0 12MM EMERGE MR 2.0 12MM was inserted over WIRE, MARVEL 190CM 190CM via the R CA Mid. A BALLOON, 2.0 12MM EMERGE MR 2.0 12MM over a WIRE, MARVEL 190CM 190CM in the RCA Mid was infla patrica using a 12:49:38 30 JOANA INDEFLATOR at 6 joana for 10 sec. A BALLOON, 2.0 12MM EMERGE MR 2.0 12MM over a WIRE, MARVEL 190CM 190CM in the RCA Mid was infla patrica using a 12:50:12 30 JOANA INDEFLATOR at 4 joana for 10 sec. 12:52:21 HR=56 bpm, CSKW=041/66 mmhg, SpO2=95.0 %, Resp=14 B/min, Pain=0, Gilmer=10, Arora=2 12:52:33 Balloon Removed. 12:53:38 A WIRE, BALANCE MIDDLEWEIGHT 190CM 190CM was inserted via Radial (right). additional wire f or support 12:57:20 A implantable was deployed using a indeflator at ~JOANA~ atmospheres for ~SECONDS~ seconds in the ~SITE~. 12:57:22 HR=53 bpm, OBED=539/64 mmhg, SpO2=95.0 %, Resp=13 B/min, Pain=0, Gilmer=10, Arora=2 A STENT, SYNERGY 3.5 X 16MM was advanced through a JR 4.0 GUIDE CATHETER FR 6 over a WIRE, BAL ANCE 12:57:24 MIDDLEWEIGHT 190CM 190CM. A STENT, SYNERGY 3.5 X 16MM was deployed using a 30 JOANA INDEFLATOR at 15 atmospheres for 15 se conds in the 12:59:09 RCA Mid. 13:00:34 The RCA was injected and visualized at various angles. OMNIPAQUE, 350 MG, 150ML 150ML use d. 13:01:43 Delivery device removed 13:02:02 Wire removed 13:02:12 second Wire removed 13:02:21 HR=53 bpm, HTLG=521/68 mmhg, SpO2=96.0 %, Resp=14 B/min, Pain=0, Gilmer=10, Arora=2 13:02:49 100 mcg NTG (IC) given in lab by Gurinder Monae RT(R) via Intra-coronary. 13:03:23 Case End 13:03:38 Catheter(s) removed without difficulty Radial Compression Device Used. 13 mLs of air placed in BAND, RADIAL COMPRESSION TR LARGE 29 2 9CM. Affected 13:04:08 hand 98 % O2 saturation. 13:07:22 HR=53 bpm, QGZU=857/69 mmhg, SpO2=97.0 %, Resp=18 B/min, Pain=0, Gilmer=10, Arora=2 13:07:29 No case complications noted. 13:07:45 Implantable Device card placed in patient's chart. 13:07:56 Holding Area notified of successful intervention. 13:08:15 A Left Heart Cath was performed. 13:10:46 180 mg BRILLINTA given in lab by Coretta Navarrete BSN in Per mouth via Oral. 13:12:25 HR=57 bpm, XRXT=798/63 mmhg, SpO2=98.0 %, Resp=19 B/min, Pain=0, Gilmer=10, Arora=2 13:15:50 Vitals capture stopped. 13:17:13 [facility] Study - Contrast Media Used In Study Contrast Total Opened (mL) Total Used (mL) Total Wasted (mL) Omnipaque 110 110 0 End Study - Maximum Contrast Load Max Contrast Load (mL) 443.2 End Study - Radiation Exposure Fluoro Time (minutes) 27.3 End Study - Patient Disposition Complications Transferred To Interventional Outcome No Telemetry Bed successful
[2017-03-16] MEDS ORDERED: SODIUM CHLORIDE 0.9% FLUSH 10 ML FLUSH IV FLUSH PRN (13:30)
[2017-03-16] MEDS ORDERED: MISC INFORMATION XX ONE (13:30)
--- NOTE | 2017-03-16 14:31 | MA ---
cc: YOSI RIZO DATE: 03/16/2017 1946 PROCEDURE PERFORMED 1. Left heart catheterization. 2. Selective right and left coronary angiography. 3. Ventriculogram. 4. Successful PCI/AGUILA to mid-right coronary artery. INDICATION [id number]-FV-kozjqnekk AR. APPROACH Right transradial. DESCRIPTION OF PROCEDURE Consent was signed. The patient was brought into the cardiac pie bakery laborer in a fasting state. The right wrist was prepped and draped in sterile fashion using 1% lidocaine for local anesthesia and a micropuncture kit. A 6-Surinamese sheath was inserted into the right radial artery. Antispasmodic cocktail was given then selective right and left coronary angiography was performed with a JR-4 and a JL-3.5 diagnostic catheter. Angiography was taken in multiple views. The JR diagnostic catheter was introduced to the ventricle over a wire. This was followed by pressure recordings, left ventriculogram and pullback. We identified a significant mid RCA lesion of more than 90% with characteristics of old clot that was amendable to percutaneous intervention for which we decided to fix. For this the right coronary artery was engaged with a JR-4 guide. The vessel was wired with [place] wire which was anchored distally in the PDA. We dilated the lesion with 1.25 balloon and a 2.5 balloon. We had significant challenge crossing the vessel with a stent despite multiple inflations on pre-dilation for which we inserted Mariamzilla guide liner as well as a BMW wire to use as a adin wire technique. Then we were able to insert and deploy successfully 3.5 6 drug eluting stent in the midportion of that right coronary artery. Final angiographic views revealed good stent position and expansion with MANASA III flow and nonobstructive coronary artery disease. Heparin was used for anticoagulation during the whole procedure and the patient was started on aspirin and Brilinta upon conclusion of the procedure. The right wrist access site was closed with a TR band. Total blood loss was 15 ccs. Total contrast was 110. RESULTS Left ventricle. The left ventricular pressure was 99/50 with an LVEDP of 5. The aortic pressure was 98/60 with an LVEDP of 80. There was no gradient upon pullback from left ventricle to aorta. A ventriculogram revealed symmetrically jojo ventricle with an estimated ejection fraction of 60%. ANGIOGRAPHY 1. The right coronary artery is a dominant vessel, it is giving off the PDA and several posterolateral branches. It does have a significant 90% lesion in its mid segment. This lesion appears to be old clot and the vessel has a MANASA II flow. This artery has been filling by collaterals coming from the distal LAD. 2. Left main is widely open and patent. It is giving off the left circumflex artery, the LAD and a small Ramus vessel. 3. The LAD is a transapical vessel. It has a proximal 40% lesion. It wraps around the apex of the left ventricle. It has another 10% lesion on its mid segment. It is giving off one main diagonal vessel which is also patent and small. 4. The left circumflex artery has a 10% lesion distally. It is giving off three OM arteries which are patent as well as a small AV groove segment of the circ. 5. The Ramus artery is small with no significant obstructive coronary artery disease. CONCLUSION 1. Successful PCI/AGUILA to mid-right coronary artery in the setting of a non-ST- elevation AR. 2. Preserved LV systolic function. RECOMMENDATIONS The patient will go to the DOCU for post cath care and continue aspirin and Brilinta as well as aggressive medical management for secondary prevention of CAD with beta-blockers, LINETTE inhibitors and statins and long-acting nitrates as tolerated by heart rate and blood pressure. Will get a 2-D Echo before discharge. MD SKYLER Edward/LIZBETH /1:11 PM /2:00 PM CHADD
[2017-03-16 17:14] LABS: HEMOGLOBIN A1C 5.5 % (4.3-6.0)
[2017-03-16] MEDS ORDERED: PRAVASTATIN SOD 20 MG TAB PO SCH (21:00)
[2017-03-16] MEDS ORDERED: SODIUM CHLORIDE 0.9% FLUSH 10 ML FLUSH IV FLUSH SCH (21:00)
[2017-03-16] MEDS ORDERED: ATORVASTATIN 10 MG TAB PO SCH (21:00)
[2017-03-16] MEDS: TICAGRELOR 90 MG TAB PO SCH (21:07)
--- NOTE | 2017-03-16 23:32 | EKG ---
Date Performed: 03/16/2017 Time Performed: 03:11:47 PTAGE: 71 years EKG: SINUS BRADYCARDIA BORDERLINE ECG PREVIOUS TRACING : 03/15/2017 23.56 Since the prior tracing, there has been no significant march DOCTOR: Nakul English Interpretating Date/Time 03/16/2017 23:30:12
--- NOTE | 2017-03-16 23:48 | EKG ---
Date Performed: 03/15/2017 Time Performed: 23:56:06 PTAGE: 71 years EKG: SINUS BRADYCARDIA BORDERLINE ECG PREVIOUS TRACING : 03/15/2017 20.46 Since the prior tracing, there has been no significant march DOCTOR: Nakul English Interpretating Date/Time 03/16/2017 23:47:48
--- NOTE | 2017-03-16 23:51 | EKG ---
Date Performed: 03/15/2017 Time Performed: 21:34:12 PTAGE: 71 years EKG: Sinus rhythm NORMAL ECG PREVIOUS TRACING : 03/15/2017 20.46 Since the prior tracing, there has been no significant march DOCTOR: Nakul English Interpretating Date/Time 03/16/2017 23:50:10
[2017-03-17] VITALS (12 sets, daily range): BP systolic 130–137; BP diastolic 68–70; PULSE 54–73; TEMP 98.4–98.6; O2SAT 97
--- NOTE | 2017-03-17 08:49 | PD.CARD.PN ---
Subjective Subjective Remarks no overnight events no CV complaints Objective Medications Current Medications Medications (Trade) Dose Ordered Sig/Rambo Route Start Time Stop Time Status Last Admin (NS Flush) 2 ml UNSCH PRN IV FLUSH 03/15/17 22:30 (NS Flush) 2 ml BID IV FLUSH 03/15/17 22:30 03/16/17 21:00 (Morphine Inj) 2 mg Q4H PRN IV PUSH 03/15/17 22:30 (Zofran Inj) 4 mg Q6H PRN IV PUSH 03/15/17 22:30 (Nitrostat Sl) 0.4 mg Q5M PRN SL 03/15/17 22:30 (Aspirin Chew) 81 mg DAILY PO 03/17/17 09:00 (Brilinta) 90 mg BID PO 03/16/17 21:00 03/16/17 21:07 (NS Flush) 2 ml UNSCH PRN IV FLUSH 03/16/17 13:30 (NS Flush) 2 ml BID IV FLUSH 03/16/17 21:00 (Lopressor) 12.5 mg BID PO 03/16/17 21:00 (Prinivil) 5 mg DAILY PO 03/17/17 09:00 (Lipitor) 10 mg HS PO 03/16/17 21:00 03/16/17 21:08 Vital Signs / I&O Vital Signs Date Time Temp Pulse Resp B/P (MAP) Pulse Ox O2 Delivery O2 Flow Rate FiO2 03/17/17 06:23 58 03/17/17 05:04 73 03/17/17 04:05 60 03/17/17 03:58 62 03/17/17 03:42 98.4 60 130/68 (88) 97 03/17/17 02:16 58 03/17/17 01:12 58 03/17/17 00:00 54 03/16/17 23:30 98.6 57 129/68 (88) 97 03/16/17 23:00 58 03/16/17 22:00 54 03/16/17 21:00 56 03/16/17 20:00 56 03/16/17 19:00 61 03/16/17 19:00 98.7 57 117/58 (77) 98 03/16/17 18:30 98.0 56 20 127/87 (100) 98 03/16/17 18:00 58 03/16/17 17:19 98 21 03/16/17 17:00 54 03/16/17 16:00 50 03/16/17 15:00 50 03/16/17 15:00 98.3 54 16 118/62 (80) 98 03/16/17 14:00 54 03/16/17 13:30 60 03/16/17 13:20 56 16 124/70 (88) 96 I/O 03/16/17 03/16/17 03/16/17 03/17/17 03/17/17 03/17/17 07:00 15:00 23:00 07:00 15:00 23:00 Intake Total 200 ml 240 ml Output Total 250 ml 375 ml Balance -50 ml -135 ml Intake Oral 200 ml 240 ml Output Urine Total 250 ml 375 ml Physical Exam GENERAL: Well-nourished, well-developed patient. SKIN: Warm and dry. HEAD: Normocephalic. EYES: No scleral icterus. No injection or drainage. NECK: Supple, trachea midline. No JVD or lymphadenopathy. CARDIOVASCULAR: Regular rate and rhythm without murmurs, gallops, or rubs. RESPIRATORY: Breath sounds equal bilaterally. No accessory muscle use. GASTROINTESTINAL: Abdomen soft, non-tender, nondistended. EXTREMITIES: No cyanosis, or edema. NEUROLOGICAL: Awake, alert, and oriented x 3. Non-focal. Assessment and Plan Problem List: (1) Chest pain ICD Codes: R07.9 - Chest pain, unspecified Status: Acute Plan: s/p PCI/AGUILA to distal RCA in the setting of NSTEMI Recommendations - Cont DAPT ASA and Brilinta - BB, ACEi, Statin - Echo today - Stable to be d/c home from CV standpoint - Cardiac rehab - Follow up with Cardiology upon discharge Problem Qualifiers (1) Chest pain: Qualified Codes: R07.9 - Chest pain, unspecified Ron-Boris Deal MD Mar 17, 2017 08:49
[2017-03-17] MEDS: METOPROLOL TARTRATE 25 MG TAB PO SCH (08:57)
[2017-03-17] MEDS: TICAGRELOR 90 MG TAB PO SCH (08:58)
[2017-03-17] MEDS ORDERED: ASPIRIN 81 MG CHEW TAB PO SCH (09:00)
[2017-03-17] MEDS ORDERED: LISINOPRIL 5 MG TAB PO SCH (09:00)
[2017-03-17] MEDS ORDERED: BRIL90TA PO (09:23)
[2017-03-17] MEDS ORDERED: METO25TA3 PO (09:23)
[2017-03-17] MEDS ORDERED: ASPI81 PO (09:23)
[2017-03-17] MEDS ORDERED: LIPI10TA PO (09:23)
[2017-03-17] MEDS ORDERED: LISI-519 PO (09:23)
--- NOTE | 2017-03-17 09:25 | HHI.DCPOC ---
Discharge Care Plan Diagnosis: (1) Chest pain (2) NSTEMI (non-ST elevated myocardial infarction) Goals to Promote Your Health * To prevent worsening of your condition and complications * To maintain your health at the optimal level Directions to Meet Your Goals Take your medications as prescribed Follow your dietary instruction Follow activity as directed Keep your appointments as scheduled Take your immunizations and boosters as scheduled If your symptoms worsen call your PCP, if no PCP go to Urgent Care Center or Emergency Room Smoking is Dangerous to Your Health. Avoid second hand smoke Call the 24-hour hour crisis hotline for domestic abuse at Lesvia Logan MD Mar 17, 2017 09:25
--- NOTE | 2017-03-17 09:25 | HHI.DS ---
Discharge Summary Admission Date Mar 15, 2017 at 23:44 Admitting Diagnosis chest pain (1) NSTEMI (non-ST elevated myocardial infarction) ICD Code: I21.4 - Non-ST elevation (NSTEMI) myocardial infarction (2) Chest pain ICD Code: R07.9 - Chest pain, unspecified Status: Acute Brief History - From Admission Written by Andie Centeno, acting as scribe for Dr. Dill on 03/16/17 at 09: 14. 71-year-old male with history of prior tobacco use quit 30 years ago, otherwise healthy, presents with several weeks of intermittent chest pains. The chest pain is located at the left anterior chest without radiation, described as intermittent 1-2 out of 10 "achy" pain; no associated dyspnea, diaphoresis, or nausea/vomiting. The duration of the pain varies, could last few minutes to an hour. He does not notice the pain worse with any exertion. He states the pain can come on at any time. He did not try any medications for relief of the pain. He also reports chronic left shoulder pain [id number] after a torn rotator cuff. He denies any recent injury. He denies any fever/chills, cough, congestion, leg swelling, weight gain, abdominal pain, or urinary complaints. Denies any recent travel. He denies any history of hypertension or diabetes. He denies any other medical complaints at this time. CBC/BMP: 03/15/17205603/15/[id number] Significant Findings Laboratory Tests Test 03/15/17 20:57 03/16/17 03:30 03/16/17 08:12 Red Blood Count 4.42 MIL/MM3 (4.50-5.90) Monocytes (%) (Auto) 9.9 % (0.0-8.0) Activated Partial Thromboplast Time 23.6 SEC (24.3-30.1) Random Glucose 149 MG/DL (74-106) Estimat Glomerular Filtration Rate 72 ML/MIN (>89) Troponin I 0.16 NG/ML (0.02-0.05) 0.23 NG/ML (0.02-0.05) Pt Condition on Discharge: Good Discharge Disposition: Discharge Home Discharge Instructions DIET: Follow Instructions for: Heart Healthy Diet Activities you can perform: See Additionl Instruction Other Activity Instructions: As directed by your lobster man. Lesvia Logan MD Mar 17, 2017 09:25
--- NOTE | 2017-03-17 13:26 | ECHRPT ---
Indication: cp CONCLUSIONS The left ventricular systolic function is normal with an estimated ejection fraction in the range of 55-60%. Mild mitral valve regurgitation. There is mild tricuspid valve regurgitation. BP: / HR: Rhythm: MEASUREMENTS (Male / Female) Normal Values Technical Quality:Good 2D ECHO LV Diastolic Diameter PLAX 5.4 cm 4.2 - 5.9 / 3.9 - 5.3 cm LV Systolic Diameter PLAX 4.0 cm IVS Diastolic Thickness 1.0 cm 0.6 - 1.0 / 0.6 - 0.9 cm LVPW Diastolic Thickness 0.9 cm 0.6 - 1.0 / 0.6 - 0.9 cm LV Relative Wall Thickness 0.4 RV Internal Dim ED PLAX 3.6 cm M-MODE Aortic Root Diameter MM 3.8 cm LA Systolic Diameter MM 4.1 cm LA Ao Ratio MM 1.1 AV Cusp Separation MM 1.7 cm DOPPLER Mitral E Point Velocity 64.2 cm/s Mitral A Point Velocity 59.7 cm/s Mitral E to A Ratio 1.1 LV E' Lateral Velocity 14.2 cm/s Mitral E to LV E' Lateral Ratio 4.5 LV E' Septal Velocity 8.0 cm/s Mitral E to LV E' Septal Ratio 8.0 TR Peak Velocity 193.0 cm/s TR Peak Gradient 14.9 mmHg Right Atrial Pressure 10.0 mmHg Pulmonary Artery Systolic Pressu 24.9 mmHg Right Ventricular Systolic Press 24.9 mmHg FINDINGS LEFT VENTRICLE Normal left ventricular size. The left ventricular systolic function is normal with an estimated ejection fraction in the range of 55-60%. No regional wall motion abnormalities are present. RIGHT VENTRICLE Normal right ventricular size and systolic function. LEFT ATRIUM The left atrial size is mildly dilated. RIGHT ATRIUM The right atrial size is normal. ATRIAL SEPTUM Normal atrial septal thickness. AORTA The aortic root and proximal ascending aorta are normal in size on limited imaging. MITRAL VALVE Structurally normal mitral valve. Mild mitral valve regurgitation. No mitral valve stenosis. AORTIC VALVE Trileaflet aortic valve. Aortic valve sclerosis is present. No aortic valve regurgitation. TRICUSPID VALVE Structurally normal tricuspid valve. There is mild tricuspid valve regurgitation. The estimated pulmonary arterial pressure is 24.9 mmHg. PULMONARY VALVE No pulmonary valve regurgitation or stenosis. VESSELS The inferior vena cava is normal in size. PERICARDIUM No pericardial effusion. Nakul English DO (Electronically Signed) Final Date:17 March 2017 13:25
== END 2017-03-17 10:51 | disposition home or self-care (01) ==
LOC: NEPC 20:09 → NEDA 23:44 → NEPFCDU 03-16 04:51 → HCIS 03-16 11:23
PROVIDERS: ADMIT Family Medicine; ATTEND Family Medicine
DX: I21.4 Non-ST elevation (NSTEMI) myocardial infarction (principal); I10 Essential (primary) hypertension; M25.512 Pain in left shoulder; G89.29 Other chronic pain; Z87.891 Personal history of nicotine dependence
CPT/HCPCS: 71046; 80048; 80061; 82550; 83036; 83735; 84484; 85002; 85025; 85610; 85730; 92928; 93005; 93306; 93458; 99152; 99153; 99285; C1725; C1769; C1874; C1887; C1893; G0378; J1644; J2250; J3010; Q9967

== ENCOUNTER 2017-03-19 22:47 | Observation (INO) | payer OTHER ==
[~2017-03-19] VITALS: Ht 175.3 cm; Wt 88.0 kg
[~2017-03-19 22:47] MED LIST: ASPI81 PO; BRIL90TA PO; FISHCAP4 PO; LIPI10TA PO; LISI-519 PO; METO25TA3 PO; MULTTAB67 PO
[2017-03-19 22:48] VITALS: BP 170/77; PULSE 71; RESP 16; TEMP 98; O2SAT 98
[2017-03-19 22:53] VITALS: BP 152/77; PULSE 65; RESP 18; O2SAT 96
[2017-03-19] MEDS ORDERED: NITROGLYCERIN 2% OINT 1 GM PACKET TOPICAL ONE (23:00)
[2017-03-19] MEDS ORDERED: NITROGLYCERIN 0.4 MG SL 25 TABS/BTL SL PRN (23:00)
--- NOTE | 2017-03-19 23:01 | PD ---
HPI Chief Complaint: Chest Pain Time Seen by Provider: 22:58 Travel History International Travel<30 days: No Contact w/Intl Traveler<30days: No Traveled to known affect area: No History of Present Illness HPI The patient is a 71 year old male who presents to the [facility] emergency department with a history of chest pain and left arm tingling that began between 7 PM and 8 PM today while watching TV. He denies any SOB, nausea, vomiting, or diaphoresis.The pain was coming and going. The pain is not present on arrival to the emergency department. He reports that the pain is similar to when he had a heart attack recently. He reports that he was discharged from the hospital a few days ago. The patient reports that he had a cardiac catheterization with stent placement. He reports that he did fill the prescriptions were provided at discharge. He is currently taking a low-dose aspirin daily along with Brilinta. On review of systems otherwise, the patient denies having any known recent fevers, cough, congestion, neck pain, abdominal pain, diarrhea, urinary symptoms, or neurologic symptoms. [facility] Past Medical History Narrative Medical The patient's past medical history is significant for having a recent non-STEMI , CAD with stent placed, tobacco use Depression: No Heart Rhythm Problems: No Cancer: No Cardiac Catheterization: Yes (stent x1) Cardiovascular Problems: No High Cholesterol: No Chest Pain: Yes Congestive Heart Failure: No Diabetes: No Psychiatric: No Tetanus Vaccination: Unknown Influenza Vaccination: No Past Surgical History Narrative Surgical The patient's past surgical history is significant for a hernia repair, cataract surgery. Abdominal Surgery: Yes (Umbillical hernia) Coronary Artery Bypass Graft: No Eye Surgery: Yes (Cataract surgery) Other Surgery: Yes (hernia ) Social History Alcohol Use: No Tobacco Use: Yes Substance Use: No Allergies-Medications (Allergen,Severity, Reaction): Coded Allergies: No Known Allergies (Verified Allergy, Unknown, 03/15/17) Reported Meds & Prescriptions Reported Meds & Active Scripts Active Isosorbide Mononitrate ER (Isosorbide Mononitrate) 30 Mg Sonido 30 Mg PO DAILY@07 Tgt Aspirin (Aspirin) 81 Mg Chw 81 Mg PO DAILY Lisinopril 5 Mg Tab 5 Mg PO DAILY Metoprolol Tartrate 25 Mg Tab 12.5 Mg PO BID Lipitor (Atorvastatin Calcium) 10 Mg Tab 10 Mg PO HS Brilinta (Ticagrelor) 90 Mg Tab 90 Mg PO BID Reported Fish Oil + D3 (Fish Oil-Cholecalciferol) 1,200-1,000 Mg-Unit Cap 1 Cap PO DAILY Multiple Vitamin 1 Tab 1 Tab PO DAILY Review of Systems Except as stated in HPI: all other systems reviewed are Neg General / Constitutional: No: Fever Eyes: No: Visual changes HENT: No: Headaches, Congestion Cardiovascular: Positive: Chest Pain or Discomfort Respiratory: No: Cough, Shortness of Breath Gastrointestinal: No: Nausea, Vomiting, Diarrhea, Abdominal Pain Genitourinary: No: Dysuria Musculoskeletal: No: Pain Skin: No Rash Neurologic: No: Weakness, Focal Abnormalities, Change in Mentation, Slurred Speech, Sensory Disturbance Psychiatric: No: Depression Endocrine: No: Polydipsia Hematologic/Lymphatic: No: Easy Bruising Physical Exam Narrative General: The patient is a well-developed well-nourished male in no acute distress. Head and Neck exam: Head is normocephalic atraumatic. Eyes: EOMI, pupils are equal round and reactive to light. Nose: Midline septum with pink mucous membranes Mouth: Dentition unremarkable. Moist mucus membranes. Posterior oropharynx is not erythematous. No tonsillar hypertrophy. Uvula midline. Airway patent. Neck: No palpable lymphadenopathy. No nuchal rigidity. No thyromegaly. Cardiovascular: Regular rate and rhythm without murmurs, gallops, or rubs. Lungs: Clear to auscultation bilaterally. No wheezes, rhonchi, or rales. Abdomen: Soft, without tenderness to palpation in all 4 quadrants of the abdomen. No guarding, rebound, or rigidity. Normal bowel sounds are audible. No tenderness on palpation of McBurney's point. Negative Solorio's sign. Extremities: No clubbing, cyanosis, or edema. 2+ pulses in all 4 extremities. No calf tenderness on palpation. Back: No costovertebral angle tenderness to palpation. Neurologic Exam: Grossly nonfocal. Skin Exam: No rash noted. Intact skin that is warm and dry. Data Data Last Documented VS Vital Signs Date Time Temp Pulse Resp B/P (MAP) Pulse Ox O2 Delivery O2 Flow Rate FiO2 03/20/17 00:02 100 Room Air 03/19/17 22:57 67 03/19/17 22:53 18 03/19/17 22:48 98.0 Orders Orders Electrocardiogram (03/19/17 22:58) Complete Blood Count With Diff (03/19/17 22:58) Comprehensive Metabolic Panel (03/19/17 22:58) Creatine Kinase (Cpk) (03/19/17 22:58) Ckmb (Isoenzyme) Profile (03/19/17 22:58) Troponin I (03/19/17 22:58) B-Type Natriuretic Peptide (03/19/17 22:58) Prothrombin Time / Inr (Pt) (03/19/17 22:58) Act Partial Throm Time (Ptt) (03/19/17 22:58) Lipase (03/19/17 22:58) Westergren Sedimentation Rate (03/19/17 22:58) Chest, Single Ap (03/19/17 22:58) Iv Access Insert/Monitor (03/19/17 22:58) Ecg Monitoring (03/19/17 22:58) Oximetry (03/19/17 22:58) Nitroglycerin 2% Oint (Nitroglycerin 2% (03/19/17 23:00) Nitroglycerin Sl (Nitrostat Sl) (03/19/17 23:00) Admit Order (Ed Use Only) (03/20/17 00:58) Labs Laboratory Tests Test 03/19/17 23:13 White Blood Count 10.9 TH/MM3 Red Blood Count 4.23 MIL/MM3 Hemoglobin 14.1 GM/DL Hematocrit 39.5 % Mean Corpuscular Volume 93.5 FL Mean Corpuscular Hemoglobin 33.3 PG Mean Corpuscular Hemoglobin Concent 35.6 % Red Cell Distribution Width 13.3 % Platelet Count 265 TH/MM3 Mean Platelet Volume 7.3 FL Neutrophils (%) (Auto) 66.3 % Lymphocytes (%) (Auto) 16.9 % Monocytes (%) (Auto) 12.1 % Eosinophils (%) (Auto) 3.7 % Basophils (%) (Auto) 1.0 % Neutrophils # (Auto) 7.2 TH/MM3 Lymphocytes # (Auto) 1.8 TH/MM3 Monocytes # (Auto) 1.3 TH/MM3 Eosinophils # (Auto) 0.4 TH/MM3 Basophils # (Auto) 0.1 TH/MM3 CBC Comment DIFF FINAL Differential Comment Erythrocyte Sedimentation Rate 4 mm/hr Prothrombin Time 10.6 SEC Prothromb Time International Ratio 1.0 RATIO Activated Partial Thromboplast Time 24.3 SEC Blood Urea Nitrogen 19 MG/DL Creatinine 1.25 MG/DL Random Glucose 115 MG/DL Total Protein 6.6 GM/DL Albumin 3.6 GM/DL Calcium Level 8.7 MG/DL Alkaline Phosphatase 71 U/L Aspartate Amino Transf (AST/SGOT) 24 U/L Alanine Aminotransferase (ALT/SGPT) 28 U/L Total Bilirubin 0.4 MG/DL Sodium Level 142 MEQ/L Potassium Level 3.7 MEQ/L Chloride Level 107 MEQ/L Carbon Dioxide Level 26.9 MEQ/L Anion Gap 8 MEQ/L Estimat Glomerular Filtration Rate 57 ML/MIN Total Creatine Kinase 65 U/L Troponin I 0.07 NG/ML B-Type Natriuretic Peptide 65 PG/ML Lipase 233 U/L [facility] Medical Decision Making Medical Screen Exam Complete: Yes Emergency Medical Condition: Yes Medical Record Reviewed: Yes Interpretation(s) Last Impressions Chest X-Ray 03/19/17 8826 Signed Impressions: Service Date/Time: Sunday, March 19, 2017 23:05 - CONCLUSION: No acute disease. Hua Velasquez MD Differential Diagnosis Acute coronary syndrome, versus anxiety disorder, versus acid reflux, versus pneumonia, versus pneumothorax, versus congestive heart failure, versus pericarditis Narrative Course During the course of the patients emergency department visit, the patients history, examination, and differential diagnosis were reviewed with the patient. The patient was placed on a manager cardiac with oximetry and frequent blood pressure monitoring. The patient had IV access obtained and blood work sent for analysis. The patient had an EKG done on arrival that shows a sinus rhythm heart rate of 68, nonspecific T-wave abnormalities, T waves inverted in lead 3 and aVF, no acute ST segment elevation. The patient was initially provided nitroglycerin sublingual every 5 minutes 3. Chest pain, nitroglycerin 1 inch the chest wall. The patients laboratory studies were reviewed and remarkable for a white count of 10.9, hemoglobin 14.1, platelets 265 with 12.1 monocytes, sedimentation rate is 4. CMP is remarkable for BUN of 19, glucose 1:15, CPK 65, troponin I elevated slightly at 0.07, BNP 65, lipase 233. PT 10.6, PTT 24.3. Radiology studies were reviewed and remarkable for a chest x-ray shows no evidence of acute cardiopulmonary disease. The patient will be admitted to the hospital for trending of his cardiac enzymes. The patient's slightly elevated troponin may simply be related to his prior elevated troponin from non-STEMI that is resolving. The patients results were discussed with the patient, including the plan of care. I explained that further testing and/ or monitoring is indicated based on the patients history, examination, and/ or laboratory findings. Therefore, I recommended admission for additional evaluation. The patient expressed understanding and was agreeable with this plan. The patient was admitted to the hospital in stable condition and [facility] Physician Communication Physician Communication The patient's case including history, pertinent physical examination findings, and laboratory studies were discussed with Dr. Fontana. It was agreed that the patient would be admitted to the [facility] service. Diagnosis Primary Impression: Chest pain, rule out acute myocardial infarction Additional Impression: Elevated troponin Admitting Information Admitting Physician Requests: Observation Scripts Isosorbide Mononitrate ER (Isosorbide Mononitrate ER) 30 Mg Sonido 30 MG PO DAILY@07 for CAD, #30 TAB Prov: Andie Centeno PA-C 03/20/17 Lexi Leach MD Mar 19, 2017 23:01
--- NOTE | 2017-03-19 23:26 | RADRPT ---
EXAM DATE/TIME: 03/19/2017 23:05 [place] COMPARISON: No previous studies available for comparison. INDICATIONS : Chest pain- Stent placed on 03/16/17 MEDICAL HISTORY : None. SURGICAL HISTORY : Cardiac Stent ENCOUNTER: Initial ACUITY: 1 day PAIN SCORE: 8/10 LOCATION: Bilateral chest FINDINGS: A single view of the chest demonstrates the lungs to be symmetrically aerated without evidence of mas s, infiltrate or effusion. The cardiomediastinal contours are unremarkable. Osseous structures are intact. CONCLUSION: No acute disease. Hua Velasquez MD on March 19, 2017 at 23:23 Board Certified Radiologist. This report was verified electronically.
[2017-03-19 23:37] LABS: AUTOMATED NEUTROPHIL # 7.2 TH/MM3 (1.8-7.7); BASOPHIL # 0.1 TH/MM3 (0-0.2); EOSINOPHIL # 0.4 TH/MM3 (0-0.4); EOSINOPHIL % 3.7 % (0.0-4.0); HEMATOCRIT 39.5 % (39.0-51.0); HEMOGLOBIN 14.1 GM/DL (13.0-17.0); LYMPH % 16.9 % (9.0-44.0); LYMPHOCYTE # 1.8 TH/MM3 (1.0-4.8); MEAN CELL VOLUME 93.5 FL (80.0-100.0); MEAN CORPUSCULAR HEMOGLOBIN 33.3 PG (27.0-34.0); MEAN CORPUSCULAR HGB CONC 35.6 % (32.0-36.0); MEAN PLATELET VOLUME 7.3 FL (7.0-11.0); MONO % 12.1 % (0.0-8.0); MONOCYTE # 1.3 TH/MM3 (0-0.9); NEUT % 66.3 % (16.0-70.0); PLATELET COUNT 265 TH/MM3 (150-450); RED BLOOD COUNT 4.23 MIL/MM3 (4.50-5.90); RED CELL DISTRIBUTION WIDTH 13.3 % (11.6-17.2); WHITE BLOOD COUNT 10.9 TH/MM3 (4.0-11.0)
[2017-03-19 23:43] LABS: PROTHROMBIN TIME - PATIENT 10.6 SEC (9.8-11.6)
[2017-03-19 23:52] LABS: ALBUMIN 3.6 GM/DL (3.4-5.0); ALT (GPT) 28 U/L (12-78); AST (GOT) 24 U/L (15-37); BICARBONATE 26.9 MEQ/L (21.0-32.0); BLOOD UREA NITROGEN 19 MG/DL (7-18); CALCIUM 8.7 MG/DL (8.5-10.1); CHLORIDE 107 MEQ/L (98-107); CREATININE 1.25 MG/DL (0.60-1.30); GLOMERULAR FILTRATION RATE 57 ML/MIN (>89); GLUCOSE,RANDOM 115 MG/DL (74-106); LIPASE 233 U/L (73-393); SODIUM (NA) 142 MEQ/L (136-145)
[2017-03-19 23:56] LABS: ALKALINE PHOSPHATASE 71 U/L (45-117); TOTAL BILIRUBIN ADULT 0.4 MG/DL (0.2-1.0); TOTAL PROTEIN 6.6 GM/DL (6.4-8.2); TROPONIN I 0.07 NG/ML (0.02-0.05)
[2017-03-20 00:02] VITALS: O2SAT 100
[2017-03-20 01:23] VITALS: BP 127/63; PULSE 67; RESP 18; O2SAT 100
[2017-03-20] MEDS ORDERED: BISACODYL 10 MG SUPP RECTAL PRN (01:30)
[2017-03-20] MEDS ORDERED: MAGNESIUM HYDROXIDE SUSP 30 ML CUP PO PRN (01:30)
[2017-03-20] MEDS ORDERED: ACETAMINOPHEN/HYDROcodone 325 MG/5 MG TAB PO PRN (01:30)
[2017-03-20] MEDS ORDERED: ONDANSETRON HCL 4 MG/2 ML VIAL IVP PRN (01:30)
[2017-03-20] MEDS ORDERED: LACTULOSE SYRUP 20 GM/30 ML CUP PO PRN (01:30)
[2017-03-20] MEDS ORDERED: SODIUM CHLORIDE 0.9% FLUSH 10 ML FLUSH IV FLUSH PRN (01:30)
[2017-03-20] MEDS ORDERED: ACETAMINOPHEN 325 MG TAB PO PRN (01:30)
[2017-03-20] MEDS ORDERED: MORPHINE SULFATE 2 MG/ML INJ IV PUSH PRN (01:30)
[2017-03-20] MEDS ORDERED: SENNOSIDES 8.6 MG TAB PO PRN (01:30)
--- NOTE | 2017-03-20 04:18 | HHI.HP ---
[facility] Service [facility] Primary Care Physician [place] Esquivel MD Admission Diagnosis cp r/o ACS Diagnoses: (1) Chest pain Diagnosis: Principal (2) Elevated troponin Diagnosis: Principal (3) HTN (hypertension) Diagnosis: Principal Travel History International Travel<30 Days: No Contact w/Intl Traveler <30 Da: No Traveled to Known Affected Are: No History of Present Illness This is a 71-year-old male with a PMH of HTN, CAD and Tobacco Abuse who presented to the ER with complaints of chest pain. Recent admit 03/15-03/17/17 for similar complaints, found to have NSTEMI, s/p Cardiac Cath by Dr. Velasquez w/ AGUILA to Distal RCA, d/c'd home on Brilinta and ASA. Per patient, he attempted to make appointment with Dr. Velasquez as outpatient, however he was told by the office they would have to call him back for appointment. States he's been taking medications as prescribed. Today, had acute onset of substernal chest pain while watching TV, 8/10, intermittent, lasting few seconds w/ spontaneous resolution. Non-radiating. On arrival, BP 170/77, HR 71, O2 sat 98% on RA, Afebrile. CBC unremarkable. Chemistry essentially unremarkable. Troponin 0.07. INR 1.0. CXR with no acute findings. Review of Systems Except as stated in HPI: all other systems reviewed are Neg ROS: 14 point review of systems otherwise negative. Past Family Social History Past Medical History PMH: HTN, CAD and Tobacco Abuse Past Surgical History PAST SURGICAL HISTORY: Umbilical Hernia, Cataract Surgery Allergies: Coded Allergies: No Known Allergies (Verified Allergy, Unknown, 03/15/17) Family History PAST FAMILY HISTORY: Reviewed. No h/o DM or CAD Social History PAST SOCIAL HISTORY: Negative for alcohol, tobacco or drugs. Physical Exam Vital Signs Vital Signs Date Time Temp Pulse Resp B/P (MAP) Pulse Ox O2 Delivery O2 Flow Rate FiO2 03/20/17 01:23 67 18 127/63 (84) 100 Room Air 03/20/17 00:02 100 Room Air 03/19/17 22:57 67 03/19/17 22:53 65 18 152/77 (102) 96 03/19/17 22:48 98.0 71 16 170/77 (108) 98 Room Air Physical Exam PE: GENERAL: Pleasant middle-aged white male in no acute distress. at bedside. HEENT: PERRLA, EOMI. No scleral icterus or conjunctival pallor. No lid lag or facial droop. CARDIOVASCULAR: Regular rate and rhythm. No obvious murmurs to auscultation. No chest tenderness to palpation. RESPIRATORY: No obvious rhonchi or wheezing. Clear to auscultation. Breath sounds equal bilaterally. GASTROINTESTINAL: Abdomen soft, non-tender, nondistended. BS normal. MUSCULOSKELETAL: Extremities without clubbing, cyanosis, or edema. No obvious deformities. NEUROLOGICAL: Awake, alert and oriented x4. No focal neurologic deficits. Moving both upper and lower extremities spontaneously. Laboratory Laboratory Tests Test 03/19/17 23:13 White Blood Count 10.9 Red Blood Count 4.23 Hemoglobin 14.1 Hematocrit 39.5 Mean Corpuscular Volume 93.5 Mean Corpuscular Hemoglobin 33.3 Mean Corpuscular Hemoglobin Concent 35.6 Red Cell Distribution Width 13.3 Platelet Count 265 Mean Platelet Volume 7.3 Neutrophils (%) (Auto) 66.3 Lymphocytes (%) (Auto) 16.9 Monocytes (%) (Auto) 12.1 Eosinophils (%) (Auto) 3.7 Basophils (%) (Auto) 1.0 Neutrophils # (Auto) 7.2 Lymphocytes # (Auto) 1.8 Monocytes # (Auto) 1.3 Eosinophils # (Auto) 0.4 Basophils # (Auto) 0.1 CBC Comment DIFF FINAL Differential Comment Erythrocyte Sedimentation Rate 4 Prothrombin Time 10.6 Prothromb Time International Ratio 1.0 Activated Partial Thromboplast Time 24.3 Blood Urea Nitrogen 19 Creatinine 1.25 Random Glucose 115 Total Protein 6.6 Albumin 3.6 Calcium Level 8.7 Alkaline Phosphatase 71 Aspartate Amino Transf (AST/SGOT) 24 Alanine Aminotransferase (ALT/SGPT) 28 Total Bilirubin 0.4 Sodium Level 142 Potassium Level 3.7 Chloride Level 107 Carbon Dioxide Level 26.9 Anion Gap 8 Estimat Glomerular Filtration Rate 57 Total Creatine Kinase 65 Troponin I 0.07 B-Type Natriuretic Peptide 65 Lipase 233 Result Diagram: 03/19/17231203/19/172312 Caprini VTE Risk Assessment Caprini VTE Risk Assessment: No/Low Risk (score <= 1) Caprini Risk Assessment Model Point Value = 1 Point Value = 2 Point Value = 3 Point Value = 5 Age 41-60 Minor surgery BMI > 25 kg/m2 Swollen legs Varicose veins or History of unexplained or recurrent spontaneous Oral contraceptives or hormone replacement Sepsis (< 1 month) Serious lung disease, including pneumonia (< 1 month) Abnormal pulmonary function Acute myocardial infarction Congestive heart failure (< 1 month) History of inflammatory bowel disease Medical patient at bed rest Age 61-74 Arthroscopic surgery Major open surgery (> 45 min) Laparoscopic surgery (> 45 min) Malignancy Confined to bed (> 72 hours) Immobilizing plaster cast Central venous access Age >= 75 History of VTE Family history of VTE Factor V Leiden Prothrombin [id number] Lupus anticoagulant Anticardiolipin antibodies Elevated serum homocysteine Heparin-induced thrombocytopenia Other congenital or acquired thrombophilia Stroke (< 1 month) Elective arthroplasty Hip, pelvis, or leg fracture Acute spinal cord injury (< 1 month) Prophylaxis Regimen Total Risk Factor Score Risk Level Prophylaxis Regimen 0-1 Low Early ambulation 2 Moderate Order ONE of the following: *Sequential Compression Device (SCD) *Heparin 5000 units SQ BID 3-4 Higher Order ONE of the following medications: *Heparin 5000 units SQ TID *Enoxaparin/Lovenox 40 mg SQ daily (WT < 150 kg, CrCl > 30 mL/min) *Enoxaparin/Lovenox 30 mg SQ daily (WT < 150 kg, CrCl > 10-29 mL/min) *Enoxaparin/Lovenox 30 mg SQ BID (WT < 150 kg, CrCl > 30 mL/min) AND/OR *Sequential Compression Device (SCD) 5 or more Highest Order ONE of the following medications: *Heparin 5000 units SQ TID (Preferred with Epidurals) *Enoxaparin/Lovenox 40 mg SQ daily (WT < 150 kg, CrCl > 30 mL/min) *Enoxaparin/Lovenox 30 mg SQ daily (WT < 150 kg, CrCl > 10-29 mL/min) *Enoxaparin/Lovenox 30 mg SQ BID (WT < 150 kg, CrCl > 30 mL/min) AND *Sequential Compression Device (SCD) Assessment and Plan Problem List: (1) Chest pain ICD Code: R07.9 - Chest pain, unspecified (2) Elevated troponin ICD Code: R74.8 - Abnormal levels of other serum enzymes Status: Acute (3) HTN (hypertension) ICD Code: I10 - Essential (primary) hypertension Assessment and Plan A/P: 1. Chest Pain: acute onset of substernal chest pain at rest, intermittent w/ spontaneous resolution, recent admit for NSTEMI s/p Cardiac Cath w/ AGUILA to distal RCA, reports compliance w/ medications. Admit to [facility], monitor on telemetry, resume home Brilinta/ASA, Consult Dr. Velasquez for further evaluation. NTG/Morphine as needed. 2. Elevated Trop: Trop 0.07, previously 0.23 after cardiac cath, will check serial enzymes to trend for acute ischemia. 3. HTN: Uncontrolled. BP 170's on arrival, likely compounded by acute chest pain, resume home medications, monitor BP 4. DVT Prophylaxis: SCD/teds. 5. Social work for DC planning as needed. 6. Case discussed at length with ER physician, labs/records/imaging reviewed by me. Yaz Fontana MD Mar 20, 2017 04:18
[2017-03-20 06:48] VITALS: BP 118/67; PULSE 78; RESP 18; TEMP 98.7; O2SAT 99
[2017-03-20 08:00] VITALS: BP 109/61; PULSE 60; RESP 20; TEMP 97.9; O2SAT 96
[2017-03-20] MEDS ORDERED: SODIUM CHLORIDE 0.9% FLUSH 10 ML FLUSH IV FLUSH SCH (09:00)
[2017-03-20] MEDS ORDERED: METOPROLOL TARTRATE 25 MG TAB PO SCH (09:00)
[2017-03-20] MEDS ORDERED: MULTIVITAMIN TAB PO SCH (09:00)
[2017-03-20] MEDS ORDERED: LISINOPRIL 5 MG TAB PO SCH (09:00)
[2017-03-20] MEDS ORDERED: TICAGRELOR 90 MG TAB PO SCH (09:00)
[2017-03-20] MEDS ORDERED: DOCUSATE SODIUM 50 MG/SENNA 8.6 MG TAB PO SCH (09:00)
[2017-03-20] MEDS ORDERED: ASPIRIN 81 MG CHEW TAB PO SCH (09:00)
--- NOTE | 2017-03-20 09:07 | PD.CONS ---
HPI Consult Requested By Primary Care Physician Chico Esquivel MD History of Present Illness 71-year-old male with a PMH of HTN, CAD s/p recent PCI/AGUILA to RCA in the setting of NSTEMI and Tobacco Abuse who presented to the ER with complaints of chest pain. He reports acute onset of substernal chest pain while watching TV, 8 /10, intermittent, lasting few seconds w/ spontaneous resolution. Non- radiating. On arrival, BP 170/77, HR 71, O2 sat 98% on RA, Afebrile. CBC unremarkable. Chemistry essentially unremarkable. Troponin 0.07. INR 1.0. CXR with no acute findings. Cardiology consulted fo further evaluation. Review of Systems Consitutional: DENIES: Fatigue, Fever, Chills, Weight gain, Weight loss Eyes: DENIES: Amaurosis Fugax, Change in vision HEENT: DENIES: Lightheadedness, Change in hearing Respiratory: DENIES: See HPI, Cough, Snoring, Shortness of breath, Wheezing, Sputum production Cardiovascular: COMPLAINS OF: See HPI, Chest pain, DENIES: Palpitations, Syncope, Tachycardia Gastrointestinal: DENIES: Nausea, Vomiting, Change in bowel habits, Reflux, Bloody stools, Melena Genitourinary: DENIES: Urinary incontinence, Difficulty voiding Integumentary: DENIES: Rash Neurologic: DENIES: Tingling or numbness, Memory problems, Poor Balance, Stroke symptoms Musculoskeletal: DENIES: Joint pain, Muscle pain, Limited range of motion, Back pain Psychiatric: DENIES: Anxiety, Depression, Sleep disturbances Hematologic: DENIES: Bruising tendencies, Bleeding tendencies Endocrine: DENIES: Weight gain, Weight loss, Thyroid disease Past Family Social History Allergies: Coded Allergies: No Known Allergies (Verified Allergy, Unknown, 03/15/17) Past Medical History HTN, CAD and Tobacco Abuse Past Surgical History Umbilical Hernia, Cataract Surgery Reported Medications Reported Meds & Active Scripts Active Tgt Aspirin (Aspirin) 81 Mg Chw 81 Mg PO DAILY Lisinopril 5 Mg Tab 5 Mg PO DAILY Metoprolol Tartrate 25 Mg Tab 12.5 Mg PO BID Lipitor (Atorvastatin Calcium) 10 Mg Tab 10 Mg PO HS Brilinta (Ticagrelor) 90 Mg Tab 90 Mg PO BID Reported Fish Oil + D3 (Fish Oil-Cholecalciferol) 1,200-1,000 Mg-Unit Cap 1 Cap PO DAILY Multiple Vitamin 1 Tab 1 Tab PO DAILY Active Ordered Medications Current Medications Medications (Trade) Dose Ordered Sig/Armbo Route Start Time Stop Time Status Last Admin (Nitrostat Sl) 0.4 mg Q5M PRN SL 03/19/17 23:00 (NS Flush) 2 ml UNSCH PRN IV FLUSH 03/20/17 01:30 (NS Flush) 2 ml BID IV FLUSH 03/20/17 09:00 (Zofran Inj) 4 mg Q6H PRN IVP 03/20/17 01:30 (Tylenol) 650 mg Q6H PRN PO 03/20/17 01:30 ([place] 5-325 Mg) 1 tab Q4H PRN PO 03/20/17 01:30 (Morphine Inj) 2 mg Q3H PRN IV PUSH 03/20/17 01:30 (Kristina-Colace) 1 tab BID PO 03/20/17 09:00 (Milk Of Magnesia Liq) 30 ml Q12H PRN PO 03/20/17 01:30 (Senokot) 17.2 mg Q12H PRN PO 03/20/17 01:30 (Dulcolax Supp) 10 mg DAILY PRN RECTAL 03/20/17 01:30 (Lactulose Liq) 30 ml DAILY PRN PO 03/20/17 01:30 (Aspirin Chew) 81 mg DAILY PO 03/20/17 09:00 (Lipitor) 10 mg HS PO 03/20/17 21:00 (Prinivil) 5 mg DAILY PO 03/20/17 09:00 (Lopressor) 12.5 mg BID PO 03/20/17 09:00 (Brilinta) 90 mg BID PO 03/20/17 09:00 (Theragran) 1 tab DAILY PO 03/20/17 09:00 Family History No h/o DM or CAD Social History Negative for alcohol or illicit drug use. Physical Exam Vital Signs Vital Signs Date Time Temp Pulse Resp B/P (MAP) Pulse Ox O2 Delivery O2 Flow Rate FiO2 03/20/17 06:48 98.7 78 18 118/67 (84) 99 03/20/17 01:23 67 18 127/63 (84) 100 Room Air 03/20/17 00:02 100 Room Air 03/19/17 22:57 67 03/19/17 22:53 65 18 152/77 (102) 96 03/19/17 22:48 98.0 71 16 170/77 (108) 98 Room Air Physical Exam GENERAL: Well-nourished, well-developed patient. SKIN: Warm and dry. HEAD: Normocephalic. EYES: No scleral icterus. No injection or drainage. NECK: Supple, trachea midline. No JVD or lymphadenopathy. CARDIOVASCULAR: Regular rate and rhythm without murmurs, gallops, or rubs. RESPIRATORY: Breath sounds equal bilaterally. No accessory muscle use. GASTROINTESTINAL: Abdomen soft, non-tender, nondistended. EXTREMITIES: No cyanosis, or edema. NEUROLOGICAL: Awake, alert, and oriented x 3. Non-focal. Laboratory Laboratory Tests Test 03/19/17 23:13 03/20/17 05:53 White Blood Count 10.9 Red Blood Count 4.23 Hemoglobin 14.1 Hematocrit 39.5 Mean Corpuscular Volume 93.5 Mean Corpuscular Hemoglobin 33.3 Mean Corpuscular Hemoglobin Concent 35.6 Red Cell Distribution Width 13.3 Platelet Count 265 Mean Platelet Volume 7.3 Neutrophils (%) (Auto) 66.3 Lymphocytes (%) (Auto) 16.9 Monocytes (%) (Auto) 12.1 Eosinophils (%) (Auto) 3.7 Basophils (%) (Auto) 1.0 Neutrophils # (Auto) 7.2 Lymphocytes # (Auto) 1.8 Monocytes # (Auto) 1.3 Eosinophils # (Auto) 0.4 Basophils # (Auto) 0.1 CBC Comment DIFF FINAL Differential Comment Erythrocyte Sedimentation Rate 4 Prothrombin Time 10.6 Prothromb Time International Ratio 1.0 Activated Partial Thromboplast Time 24.3 Blood Urea Nitrogen 19 Creatinine 1.25 Random Glucose 115 Total Protein 6.6 Albumin 3.6 Calcium Level 8.7 Alkaline Phosphatase 71 Aspartate Amino Transf (AST/SGOT) 24 Alanine Aminotransferase (ALT/SGPT) 28 Total Bilirubin 0.4 Sodium Level 142 Potassium Level 3.7 Chloride Level 107 Carbon Dioxide Level 26.9 Anion Gap 8 Estimat Glomerular Filtration Rate 57 Total Creatine Kinase 65 Troponin I 0.07 0.07 B-Type Natriuretic Peptide 65 Lipase 233 Result Diagram: 03/19/17 2313 03/19/172312 Imaging Last Impressions Chest X-Ray 03/19/17 4503 Signed Impressions: Service Date/Time: Sunday, March 19, 2017 23:05 - CONCLUSION: No acute disease. Hua Velasquez MD Assessment and Plan Problem List: (1) Chest pain ICD Codes: R07.9 - Chest pain, unspecified Plan: Atypical chest pain Compliant with ASA and Brilinta No Acute changes on EKG Troponin 0.07, 0.07 Elevated BP No CV complaints Ambulating without difficulty Recommendation: No need for further cardiac work up Cont ASA and Brilinta Encourage ambulation Cont BB, Statin Start Imdur 30mg PO daily Follow up with [facility] upon discharge Thank you for the opportunity to participate in the care of this patient Will be available on a PRN basis for any questions or concerns (2) Tobacco abuse ICD Codes: Z72.0 - Tobacco use (3) HTN (hypertension) ICD Codes: I10 - Essential (primary) hypertension Boris Hathaway MD Mar 20, 2017 09:07
[2017-03-20 10:00] VITALS: PULSE 55
--- NOTE | 2017-03-20 10:08 | HHI.PR ---
Subjective Remarks Follow up for chest pain in a patient with CAD s/p recent stent placement. The patient reports no further episodes of chest pain overnight or today. Denies any palpitations, shortness of breath, leg swelling, or weight gain. He reports compliance with all medications including Brilinta. He was seen by cardiology, started on Imdur, and cleared for discharge. The patient wants to go home. Objective Vitals Vital Signs Date Time Temp Pulse Resp B/P (MAP) Pulse Ox O2 Delivery O2 Flow Rate FiO2 03/20/17 08:00 97.9 60 20 109/61 (77) 96 03/20/17 06:48 98.7 78 18 118/67 (84) 99 03/20/17 01:23 67 18 127/63 (84) 100 Room Air 03/20/17 00:02 100 Room Air 03/19/17 22:57 67 03/19/17 22:53 65 18 152/77 (102) 96 03/19/17 22:48 98.0 71 16 170/77 (108) 98 Room Air Result Diagram: 03/19/17231203/19/172312 Imaging Last Impressions Chest X-Ray 03/19/172257 Signed Impressions: Service Date/Time: Sunday, March 19, 2017 23:05 - CONCLUSION: No acute disease. Hua Velasquez MD Objective Remarks GENERAL: Well-nourished, well-developed male patient in [facility]. SKIN: Warm and dry. No rash. HEENT: Normocephalic. Atraumatic.Pupils equal and round. Mucous membranes pink and moist. NECK: Supple. Trachea midline. CARDIOVASCULAR: Regular rate and rhythm. S1, S2 noted. No murmur appreciated. RESPIRATORY: No accessory muscle use. Clear to auscultation. Breath sounds equal bilaterally. GASTROINTESTINAL: Abdomen soft, non-tender, nondistended. Normoactive bowel sounds x4. MUSCULOSKELETAL: No obvious deformities. Extremities without clubbing, cyanosis , or edema. NEUROLOGICAL: Awake and alert. No obvious cranial nerve deficits. Motor grossly within normal limits. Normal speech. PSYCHIATRIC: Appropriate mood and affect; insight and judgment normal. Medications and IVs Current Medications Medications (Trade) Dose Ordered Sig/Rambo Route Start Time Stop Time Status Last Admin (Nitrostat Sl) 0.4 mg Q5M PRN SL 03/19/17 23:00 (NS Flush) 2 ml UNSCH PRN IV FLUSH 03/20/17 01:30 (NS Flush) 2 ml BID IV FLUSH 03/20/17 09:00 03/20/17 10:13 (Zofran Inj) 4 mg Q6H PRN IVP 03/20/17 01:30 (Tylenol) 650 mg Q6H PRN PO 03/20/17 01:30 ([place] 5-325 Mg) 1 tab Q4H PRN PO 03/20/17 01:30 (Morphine Inj) 2 mg Q3H PRN IV PUSH 03/20/17 01:30 (Kristina-Colace) 1 tab BID PO 03/20/17 09:00 (Milk Of Magnesia Liq) 30 ml Q12H PRN PO 03/20/17 01:30 (Senokot) 17.2 mg Q12H PRN PO 03/20/17 01:30 (Dulcolax Supp) 10 mg DAILY PRN RECTAL 03/20/17 01:30 (Lactulose Liq) 30 ml DAILY PRN PO 03/20/17 01:30 (Aspirin Chew) 81 mg DAILY PO 03/20/17 09:00 (Lipitor) 10 mg HS PO 03/20/17 21:00 (Prinivil) 5 mg DAILY PO 03/20/17 09:00 (Lopressor) 12.5 mg BID PO 03/20/17 09:00 03/20/17 10:13 (Brilinta) 90 mg BID PO 03/20/17 09:00 03/20/17 10:13 (Theragran) 1 tab DAILY PO 03/20/17 09:00 (Imdur) 30 mg DAILY@07 PO 03/21/17 07:00 A/P Problem List: (1) Chest pain ICD Code: R07.9 - Chest pain, unspecified (2) Elevated troponin ICD Code: R74.8 - Abnormal levels of other serum enzymes Status: Acute (3) HTN (hypertension) ICD Code: I10 - Essential (primary) hypertension Assessment and Plan 71-year-old male with a PMH of HTN, CAD and Tobacco Abuse who presented to the ER with complaints of chest pain. Recent admit 03/15-03/17/17 for similar complaints, found to have NSTEMI, s/p Cardiac Cath by Dr. Velasquez w/ AGUILA to Distal RCA, d/c'd home on Brilinta and ASA. Chest Pain: acute onset of substernal chest pain at rest, intermittent w/ spontaneous resolution. Recent admit for NSTEMI s/p Cardiac Cath w/ AGUILA to distal RCA, reports compliance w/ medications. -Monitor on telemetry -Serial cardiac enzymes flat at 0.07 -EKG reviewed, no acute ischemic changes -Resume home Brilinta/ASA -NTG/Morphine as needed. -Consult Dr. Velasquez for further evaluation, recommended starting on Imdur 30mg otherwise no further cardiac testing/intervention. -Patient remained chest pain free throughout admission, will discharge home Elevated Trop: Trop 0.07, previously 0.23 after cardiac cath. -Serial cardiac enzymes flat at 0.07 -Suspect secondary to recent cath -Cleared by cardiology HTN: Uncontrolled. BP 170's on arrival, likely compounded by acute chest pain -resume home medications including lisinopril and metoprolol -also started on imdur as above -BP much improved DVT Prophylaxis: SCD/teds. Discharge Planning Discharge patient to home Condition on discharge: Improved Heart Healthy Diet as tolerated Ad Sully activity Rx written: imdur 30mg daily Follow-up with primary care physician and camp dining room attendant Andie Govea PA-C Mar 20, 2017 10:08 am
--- NOTE | 2017-03-20 11:25 | HHI.DCPOC ---
Discharge Care Plan Diagnosis: (1) Chest pain (2) HTN (hypertension) (3) Presence of stent in coronary artery in patient with coronary artery disease Goals to Promote Your Health * To prevent worsening of your condition and complications * To maintain your health at the optimal level Directions to Meet Your Goals Take your medications as prescribed Follow your dietary instruction Follow activity as directed Keep your appointments as scheduled Take your immunizations and boosters as scheduled If your symptoms worsen call your PCP, if no PCP go to Urgent Care Center or Emergency Room Smoking is Dangerous to Your Health. Avoid second hand smoke Call the 24-hour hour crisis hotline for domestic abuse at Andie Centeno PA-C Mar 20, 2017 11:25 am
[2017-03-20] MEDS ORDERED: ISOS30TA3 PO (11:29)
[2017-03-20] MEDS ORDERED: ISOSORBIDE MONONITRATE 30 MG TAB PO ONE (11:45)
--- NOTE | 2017-03-20 17:58 | EKG ---
Date Performed: 03/19/2017 Time Performed: 22:52:55 PTAGE: 71 years EKG: Sinus rhythm NONSPECIFIC T-WAVE ABNORMALITY. Consider inferior ischemia. ABNORMAL ECG PREVIOUS TRACING : 03/16/2017 03.11 DOCTOR: Zackary Clarke Interpretating Date/Time 03/20/2017 17:56:49
[2017-03-20] MEDS ORDERED: ATORVASTATIN 10 MG TAB PO SCH (21:00)
[2017-03-21] MEDS ORDERED: ISOSORBIDE MONONITRATE 30 MG TAB PO SCH (07:00)
== END 2017-03-20 12:59 | disposition home or self-care (01) ==
LOC: NEPC 22:47 → NEDA 03-20 01:00 → NEPGCP 03-20 02:29
PROVIDERS: ADMIT Hospitalist; ATTEND Hospitalist
DX: I25.10 Atherosclerotic heart disease of native coronary artery without angina pectoris (principal); I10 Essential (primary) hypertension; I25.2 Old myocardial infarction; F17.200 Nicotine dependence, unspecified, uncomplicated; R20.2 Paresthesia of skin; R74.8 Abnormal levels of other serum enzymes; R94.31 Abnormal electrocardiogram [ECG] [EKG]; Z79.82 Long term (current) use of aspirin; Z95.5 Presence of coronary angioplasty implant and graft
CPT/HCPCS: 71045; 80053; 82550; 83690; 83880; 84484; 85025; 85610; 85652; 85730; 93005; 99285; G0378

== ENCOUNTER 2017-07-18 03:19 | Observation (INO) | payer MEDICARE, OTHER ==
[2017-07-18] VITALS (7 sets, daily range): BP systolic 120–164; BP diastolic 59–76; PULSE 56–70; RESP 16–18; TEMP 98.7–100.6; O2SAT 93–99
[~2017-07-18 03:19] MED LIST changes: +ISOS30TA3 PO
[2017-07-18] MEDS ORDERED: CLOP75TA PO (03:34)
--- NOTE | 2017-07-18 03:55 | RADRPT ---
EXAM DATE: 07/18/2017 3:53 AM EDT AGE/SEX: 71 years / Male INDICATIONS: Chest pain. CLINICAL DATA: This is the patient's initial encounter. Patient reports that signs and symptoms have been present for 1 day and indicates a pain score of 4/10. MEDICAL/SURGICAL HISTORY: None. . Stent placement. COMPARISON: [facility] [place]ST SINGLE AP, 03/19/2017. . FINDINGS: The lungs are clear without infiltrate, nodule, or mass. There is no appreciable pleural effusion for technique. Heart and mediastinum are unremarkable. CONCLUSION: No acute cardiopulmonary disease. Electronically signed by: Fina Rodriguez MD 07/18/2017 3:54 AM EDT
[2017-07-18 03:56] LABS: AUTOMATED NEUTROPHIL # 12.2 TH/MM3 (1.8-7.7); BASOPHIL % 0.3 % (0.0-2.0); EOSINOPHIL # 0.1 TH/MM3 (0-0.4); EOSINOPHIL % 0.6 % (0.0-4.0); HEMOGLOBIN 14.5 GM/DL (13.0-17.0); LYMPH % 9.9 % (9.0-44.0); LYMPHOCYTE # 1.6 TH/MM3 (1.0-4.8); MEAN CELL VOLUME 94.8 FL (80.0-100.0); MEAN CORPUSCULAR HEMOGLOBIN 32.8 PG (27.0-34.0); MEAN CORPUSCULAR HGB CONC 34.6 % (32.0-36.0); MEAN PLATELET VOLUME 7.2 FL (7.0-11.0); MONO % 11.6 % (0.0-8.0); MONOCYTE # 1.8 TH/MM3 (0-0.9); NEUT % 77.6 % (16.0-70.0); PLATELET COUNT 240 TH/MM3 (150-450); RED BLOOD COUNT 4.43 MIL/MM3 (4.50-5.90); RED CELL DISTRIBUTION WIDTH 13.4 % (11.6-17.2); WHITE BLOOD COUNT 15.7 TH/MM3 (4.0-11.0)
[2017-07-18] MEDS ORDERED: SODIUM CHLORID 0.9% 500 ML INJ 500 ML IV ONE (04:00)
--- NOTE | 2017-07-18 04:10 | PD ---
HPI Chief Complaint: Abdominal Pain Time Seen by Provider: 03:30 Travel History International Travel<30 days: No Contact w/Intl Traveler<30days: No Traveled to known affect area: No History of Present Illness HPI The patient is a 71 year old male who presents to the [facility] emergency department with a history of abdominal pain that he reports began 12 hours ago. The patient reports the pain is been constant. He reports that it is in the right side of his abdomen. He reports having and associated subjective fever, diminished appetite, and dry heaves earlier today. He reports that the pain feels like "a stitch in her side when you run". He denies any alleviating or aggravating. He reports the pain is a 4-5 out of 10 in severity. He denies having any diarrhea. He reports that his last bowel movement was yesterday morning. He denies having any black or tarry stools. He denies ever having kidney stones. He denies ever having a pain similar to this in the past. He reports that his only abdominal surgery is an umbilical hernia repair. He continues to have his appendix and gallbladder. The patient on review of systems denies having any cough or congestion, neck pain, chest pain, shortness of breath, urinary symptoms, or neurologic symptoms. [facility] Past Medical History Narrative Medical The patient's past medical history is significant for hypertension, coronary artery disease with a prior associated myocardial infarction status post stent placement. Depression: No Heart Rhythm Problems: No Cancer: No Cardiac Catheterization: Yes (STENT PLACED) Cardiovascular Problems: No High Cholesterol: No Chest Pain: Yes Congestive Heart Failure: No Diabetes: No Diminished Hearing: No Hypertension: Yes Psychiatric: No Immunizations Current: Yes Myocardial Infarction: Yes Past Surgical History Narrative Surgical The patient's past surgical history is significant for cardiac catheterization with stent placement, cataract surgery, umbilical hernia repair. Abdominal Surgery: Yes (Umbillical hernia) Coronary Artery Bypass Graft: No Eye Surgery: Yes (Cataract surgery) Other Surgery: Yes (hernia ) Social History Alcohol Use: No Tobacco Use: No Substance Use: No Allergies-Medications (Allergen,Severity, Reaction): Coded Allergies: ticagrelor (Verified Allergy, Intermediate, RASH, 07/18/17) Reported Meds & Prescriptions Reported Meds & Active Scripts Active Isosorbide Mononitrate ER (Isosorbide Mononitrate) 30 Mg Sonido 30 Mg PO DAILY@07 Tgt Aspirin (Aspirin) 81 Mg Chw 81 Mg PO DAILY Lisinopril 5 Mg Tab 5 Mg PO DAILY Metoprolol Tartrate 25 Mg Tab 12.5 Mg PO BID Lipitor (Atorvastatin Calcium) 10 Mg Tab 10 Mg PO HS Reported Clopidogrel (Clopidogrel Bisulfate) 75 Mg Tab 75 Mg PO DAILY Fish Oil + D3 (Fish Oil-Cholecalciferol) 1,200-1,000 Mg-Unit Cap 1 Cap PO DAILY Multiple Vitamin 1 Tab 1 Tab PO DAILY Review of Systems Except as stated in HPI: all other systems reviewed are Neg General / Constitutional: No: Fever Eyes: No: Visual changes HENT: No: Headaches, Congestion Cardiovascular: No: Chest Pain or Discomfort, Dyspnea on exertion Respiratory: No: Cough, Shortness of Breath Gastrointestinal: Positive: Nausea, Vomiting, Abdominal Pain, Loss of Appetite , No: Diarrhea, Hematemesis, Hematochezia, Constipation, Changes in Bowel Habits , Indigestion Genitourinary: No: Dysuria Musculoskeletal: No: Pain Skin: No Rash Neurologic: No: Weakness, Focal Abnormalities, Headache, Change in Mentation, Slurred Speech, Sensory Disturbance Psychiatric: No: Depression Endocrine: No: Polydipsia Hematologic/Lymphatic: No: Easy Bruising Physical Exam Narrative General: The patient is a well-developed well-nourished male in no acute distress. Head and Neck exam: Head is normocephalic atraumatic. Eyes: EOMI, pupils are equal round and reactive to light. Nose: Midline septum with pink mucous membranes Mouth: Dentition unremarkable. Moist mucus membranes. Posterior oropharynx is not erythematous. No tonsillar hypertrophy. Uvula midline. Airway patent. Neck: No palpable lymphadenopathy. No nuchal rigidity. No thyromegaly. Cardiovascular: Regular rate and rhythm without murmurs, gallops, or rubs. No pulse deficit to the extremities on simultaneous auscultation and palpation of his radial artery. Lungs: Clear to auscultation bilaterally. No wheezes, rhonchi, or rales. Abdomen: Soft, with tenderness reported on palpation in both the right upper and right lower quadrant of the abdomen. The patient has a positive Solorio sign. The patient has normal bowel sounds audible. No guarding, rebound, or rigidity. Negative the patient has no point tenderness on palpation over McBurney's point. No Rovsing sign. Extremities: No clubbing, cyanosis, or edema. 2+ pulses in all 4 extremities. No calf tenderness on palpation. Back: No spinous process tenderness to palpation. No costovertebral angle tenderness to palpation. Neurologic Exam: Grossly nonfocal. Skin Exam: No rash noted. Intact skin that is warm and dry. Data Data Last Documented VS Vital Signs Date Time Temp Pulse Resp B/P (MAP) Pulse Ox O2 Delivery O2 Flow Rate FiO2 07/18/17 05:32 65 16 164/76 (105) 98 Room Air 07/18/17 03:20 98.7 Orders Orders Electrocardiogram (07/18/17 03:33) Complete Blood Count With Diff (07/18/17 03:33) Comprehensive Metabolic Panel (07/18/17 03:33) C-Reactive Protein (Crp) (07/18/17 03:33) Lipase (07/18/17 03:33) Urinalysis - C+S If Indicated (07/18/17 03:33) Magnesium (Mg) (07/18/17 03:33) Chest, Single Ap (07/18/17 03:33) Iv Access Insert/Monitor (07/18/17 03:33) Ecg Monitoring (07/18/17 03:33) Oximetry (07/18/17 03:33) Sodium Chlorid 0.9% 500 Ml Inj (Ns 500 M (07/18/17 04:00) Ct Abd/Pel W Iv Contrast(Rout) (07/18/17 03:59) Iohexol 350 Inj (Omnipaque 350 Inj) (07/18/17 04:54) Admit Order (Ed Use Only) (07/18/17 05:52) Labs Laboratory Tests Test 07/18/17 03:40 07/18/17 05:05 White Blood Count 15.7 TH/MM3 Red Blood Count 4.43 MIL/MM3 Hemoglobin 14.5 GM/DL Hematocrit 42.0 % Mean Corpuscular Volume 94.8 FL Mean Corpuscular Hemoglobin 32.8 PG Mean Corpuscular Hemoglobin Concent 34.6 % Red Cell Distribution Width 13.4 % Platelet Count 240 TH/MM3 Mean Platelet Volume 7.2 FL Neutrophils (%) (Auto) 77.6 % Lymphocytes (%) (Auto) 9.9 % Monocytes (%) (Auto) 11.6 % Eosinophils (%) (Auto) 0.6 % Basophils (%) (Auto) 0.3 % Neutrophils # (Auto) 12.2 TH/MM3 Lymphocytes # (Auto) 1.6 TH/MM3 Monocytes # (Auto) 1.8 TH/MM3 Eosinophils # (Auto) 0.1 TH/MM3 Basophils # (Auto) 0.0 TH/MM3 CBC Comment DIFF FINAL Differential Comment Blood Urea Nitrogen 15 MG/DL Creatinine 1.16 MG/DL Random Glucose 101 MG/DL Total Protein 6.9 GM/DL Albumin 3.9 GM/DL Calcium Level 8.6 MG/DL Magnesium Level 2.2 MG/DL Alkaline Phosphatase 71 U/L Aspartate Amino Transf (AST/SGOT) 14 U/L Alanine Aminotransferase (ALT/SGPT) 24 U/L Total Bilirubin 0.7 MG/DL Sodium Level 140 MEQ/L Potassium Level 4.0 MEQ/L Chloride Level 104 MEQ/L Carbon Dioxide Level 27.0 MEQ/L Anion Gap 9 MEQ/L Estimat Glomerular Filtration Rate 62 ML/MIN C-Reactive Protein 1.03 MG/DL Lipase 137 U/L Urine Color LIGHT-YELLOW Urine Turbidity CLEAR Urine pH 6.5 Urine Specific Matheny 1.039 Urine Protein NEG mg/dL Urine Glucose (UA) NEG mg/dL Urine Ketones NEG mg/dL Urine Occult Blood NEG Urine Nitrite NEG Urine Bilirubin NEG Urine Urobilinogen LESS THAN 2.0 MG/DL Urine Leukocyte Esterase NEG Urine WBC 1 /hpf Urine Mucus FEW /lpf Microscopic Urinalysis Comment CULT NOT INDICATED MDM Medical Decision Making Medical Screen Exam Complete: Yes Emergency Medical Condition: Yes Medical Record Reviewed: Yes Differential Diagnosis Acute cholecystitis, versus pancreatitis, versus appendicitis, versus diverticulitis, versus mesenteric adenitis Narrative Course During the course of the patient's emergency department visit, the patient's history, examination, and differential diagnosis were reviewed with the patient. The patient was placed on a quality assurance monitor chassis with oximetry and frequent blood pressure monitoring. The patient had IV access obtained and blood work sent for analysis. The patient was initially provided normal saline at 500 mL bolus 1. The patient was offered pain medication and nausea medication, however he prefers to avoid this at this time. The patient's laboratory studies were reviewed and remarkable for a white count of 15.7, hemoglobin 14.5, platelets 240, neutrophils 77.6, monocytes 11.6. CMP is remarkable for GFR of 62, AST 14, C-reactive protein 1.03, lipase 137, urinalysis is within normal limits Radiology studies were reviewed and remarkable for chest x-ray that shows no acute cardiopulmonary disease. CT scan of the abdomen and pelvis shows slight atelectasis and/or infiltrate is seen in the right middle lobe and right lower lobe of the lung, large cysts in both kidneys however there is one in the right side which demonstrates soft tissue components within it possibly complicated cysts, however a malignant mass is difficult to exclude, one of the cyst on the left side demonstrates a small peripheral nodule as well and further characterization with abdominal MRI with and without contrast is recommended. The patient on reexamination continues to have significant diffuse pain medication. The patient's results were discussed with him. Due to the patient' s persistent pain and abnormalities noted on CAT scan, the patient will be admitted to the hospital for continued evaluation and treatment, serial abdominal exams. The patient's results were discussed with the patient, including the plan of care. I explained that further testing and/ or monitoring is indicated based on the patient's history, examination, and/ or laboratory findings. Therefore, I recommended admission for additional evaluation. The patient expressed understanding and was agreeable with this plan. The patient was admitted to the hospital in guarded condition and sent to a bed under the care of the [facility] service. Physician Communication Physician Communication The patient's case including history, pertinent physical examination findings, and laboratory studies were discussed with Dr. Garcia. It was agreed that the patient would be admitted to the [facility] service. Diagnosis Primary Impression: Abdominal pain Qualified Codes: R10.9 - Unspecified abdominal pain Additional Impression: Leukocytosis Qualified Codes: D72.829 - Elevated white blood cell count, unspecified Admitting Information Admitting Physician Requests: Lexi Diaz MD July 18, 2017 04:10
[2017-07-18 04:18] LABS: ALBUMIN 3.9 GM/DL (3.4-5.0); ALT (GPT) 24 U/L (12-78); AST (GOT) 14 U/L (15-37); BLOOD UREA NITROGEN 15 MG/DL (7-18); C-REACTIVE PROTEIN 1.03 MG/DL (0.00-0.30); CALCIUM 8.6 MG/DL (8.5-10.1); CHLORIDE 104 MEQ/L (98-107); CREATININE 1.16 MG/DL (0.60-1.30); GLOMERULAR FILTRATION RATE 62 ML/MIN (>89); GLUCOSE,RANDOM 101 MG/DL (74-106); MAGNESIUM 2.2 MG/DL (1.5-2.5); SODIUM (NA) 140 MEQ/L (136-145)
[2017-07-18 04:20] LABS: ALKALINE PHOSPHATASE 71 U/L (45-117); TOTAL BILIRUBIN ADULT 0.7 MG/DL (0.2-1.0); TOTAL PROTEIN 6.9 GM/DL (6.4-8.2)
[2017-07-18] MEDS ORDERED: IOHEXOL 350 MG/ML 10 ML VIAL (for RAD DIAG) IVCONTRAST ONE (04:54)
--- NOTE | 2017-07-18 05:11 | RADRPT ---
EXAM DATE: 07/18/2017 4:51 AM EDT AGE/SEX: 71 years / Male INDICATIONS: Right abdomen pain. CLINICAL DATA: This is the patient's initial encounter. Patient reports that signs and symptoms have been present for 1 day and indicates a pain score of 5/10. MEDICAL/SURGICAL HISTORY: Cardiovascular disease. Hypertension. Hernia . Stents. ORAL CONTRAST: No oral contrast ingested. RADIATION DOSE: 8.16 CTDI (mGy) COMPARISON: No prior exams available for comparison. TECHNIQUE: Multiple contiguous axial images were obtained through the abdomen and pelvis following b olus infusion of 100 ml Omnipaque 350 (iohexol) nonionic water-soluble contrast as a single exam do se. No oral contrast ingested. Using automated exposure control and adjustment of the mA and/or kV a ccording to patient size, the radiation dose was kept as low as reasonably achievable to obtain optim al diagnostic quality images. FINDINGS: Abdomen CT: The liver, spleen, pancreas, adrenals are unremarkable. There are multiple simple cysts in both kidne ys, however in the right kidney there is a mainly cystic mass which measures 5.2 cm in size, however has a soft tissue component to it which measures 3.5 cm. There is a separate area of peripheral based soft tissue component within this cystic mass as well. There is also a cyst in the left kidney which measures 4.8 cm and an approximate 1.1 cm peripheral soft tissue component. The largest cyst measure s almost 7 cm on the right. There is no evidence for any appreciable pathological adenopathy, free fl uid, or bowel obstruction. Slight atelectasis and/or infiltrate is seen in right middle lobe and rig ht lower lobe. Pelvic CT: There is no evidence for mass, abscess formation, or any significant adenopathy within the pelvis. T here is moderate amount of stool in the colon. There are scattered diverticuli within the colon main ly the sigmoid colon without signs of diverticulitis for technique. The prostate gland measures4.0 x 5.7 cm in AP and transverse diameters inhomogeneous in appearance and nonspecific. Tiny bone islands are present within the left iliac bone. CONCLUSION: 1. There are large cysts in both kidneys, however there is one in the right side which demonstrates soft tissue components within it possibly complicated cyst, however a malignant mass is difficult to exclude. One of the cysts on the left side demonstrates is a small peripheral nodule as well and furt her characterization with abdominal MRI with and without contrast is recommended. 2. Right lung infiltrate. Electronically signed by: Fina Rodriguez MD 07/18/2017 5:10 AM EDT
[2017-07-18 05:39] LABS: BILIRUBIN, URINE NEG (NEG); BLOOD, URINE NEG (NEG); GLUCOSE,URINE NEG (NEG); KETONE, URINE NEG (NEG); MUCUS URINE FEW /lpf (OCC); NITRITE,URINE NEG (NEG); PH, URINE 6.5 (5.0-8.5); URINE COLOR LIGHT-YELLOW (YELLW/STRAW); URINE LEUKOCYTE ESTERASE NEG (NEG)
[2017-07-18] MEDS ORDERED: LACTULOSE SYRUP 20 GM/30 ML CUP PO PRN (06:00)
[2017-07-18] MEDS ORDERED: BISACODYL 10 MG SUPP RECTAL PRN (06:00)
[2017-07-18] MEDS ORDERED: NALOXONE HCL 0.4 MG/ML AMP IV PUSH PRN (06:00)
[2017-07-18] MEDS ORDERED: SODIUM CHLORIDE 0.9% FLUSH 10 ML FLUSH IV FLUSH PRN (06:00)
[2017-07-18] MEDS ORDERED: SENNOSIDES 8.6 MG TAB PO PRN (06:00)
[2017-07-18] MEDS ORDERED: MAGNESIUM HYDROXIDE SUSP 30 ML CUP PO PRN (06:00)
[2017-07-18] MEDS ORDERED: ACETAMINOPHEN 325 MG TAB PO PRN (06:00)
[2017-07-18] MEDS ORDERED: PIPERACIL-TAZO 3.375 GM PREMIX 50 ML IV SCH (08:00)
[2017-07-18] MEDS: ENOXAPARIN SODIUM 40 MG/0.4 ML SYRINGE SQ SCH (08:53)
[2017-07-18] MEDS: SODIUM CHLORIDE 0.9% FLUSH 10 ML FLUSH IV FLUSH SCH ×2 (08:53→20:14)
[2017-07-18] MEDS ORDERED: AZITHROMYCIN INJ 500 MG in SODIUM CHLOR 0.9% 250 ML INJ 250 ML IV SCH (09:00)
[2017-07-18] MEDS ORDERED: traMADol HCL 50 MG TAB PO PRN (12:15)
--- NOTE | 2017-07-18 12:21 | HHI.HP ---
HPI Service [facility] Primary Care Physician [place] Esquivel MD Admission Diagnosis Intractable abdominal pain, kidney mass Diagnoses: Chief Complaint: Right-sided abdominal and flank pain Travel History International Travel<30 Days: No Contact w/Intl Traveler <30 Da: No Traveled to Known Affected Are: No History of Present Illness 71-year-old white male with a history of coronary artery disease, hypertension presents to the emergency room with acute onset of right flank and mid abdominal pain which he describes as a stitching constant type of pain worse with movement. She state he states since the pain started it has eased down with a pain intensity of 3 out of 10. He reports due to the pain he had a hard time taking a deep breath. He has not had any coughing, nor any shortness of breath or any chest pains. He had not had any trauma to the area or lifting anything heavy during the past week. He denies any changes in his bowel habits no blood in the stools or black tarry stools. He denies any hematuria or urinary frequency or urgency. He has denied any unusual oral food intake. He reports he has not had this type of pain previously. He reports he has not had any kidney or urinary problems in the past. Review of Systems Constitutional: DENIES: Fatigue, Fever, Chills, Change in appetite Endocrine: DENIES: Heat/cold intolerance Eyes: DENIES: Blurred vision, Eye pain, Vision loss Ears, nose, mouth, throat: DENIES: Hearing loss, Nasal discharge, Throat pain, Ear Pain, Sinus Pain Respiratory: DENIES: Cough, Shortness of breath Cardiovascular: DENIES: Chest pain, Palpitations, Dyspnea on Exertion, Lower Extremity Edema Gastrointestinal: COMPLAINS OF: Abdominal pain (Right flank and mid abdomen pain as described in HPI), DENIES: Black stools, Bloody stools, Constipation, Diarrhea, Nausea, Vomiting Musculoskeletal: DENIES: Joint pain, Muscle aches, Stiffness Integumentary: DENIES: Rash Hematologic/lymphatic: DENIES: Bruising, Lymphadenopathy Immunologic/allergic: DENIES: Eczema Neurologic: DENIES: Headache, Localized weakness, Paresthesias Psychiatric: DENIES: Anxiety, Depression, Suicidal Ideation Past Family Social History Past Medical History Coronary artery disease status post stent in the past Hypertension Cataracts Past Surgical History catarct repair Umbilical hernia repair Reported Medications Aspirin 81 mg p.o. daily Lipitor 10 mg p.o. nightly Plavix 75 mg p.o. daily Fish oil 1 p.o. daily Isosorbide mononitrate 30 mg p.o. daily Lisinopril 5 mg p.o. daily metoprolol 12.5 mg p.o. twice daily multivitamin 1 p.o. daily Allergies: Coded Allergies: ticagrelor (Verified Allergy, Intermediate, RASH, 07/18/17) Family History No significant past medical history per patient Social History Does not smoke cigarettes or drink alcohol Physical Exam Vital Signs Vital Signs Date Time Temp Pulse Resp B/P (MAP) Pulse Ox O2 Delivery O2 Flow Rate FiO2 07/18/17 08:00 98.8 64 16 141/71 (94) 99 07/18/17 06:50 07/18/17 06:16 21 07/18/17 05:32 65 16 164/76 (105) 98 Room Air 07/18/17 03:35 65 16 140/63 (88) 96 Room Air 07/18/17 03:35 16 96 Room Air 07/18/17 03:20 98.7 64 18 134/64 (87) 99 Physical Exam GENERAL: This is a well-nourished, well-developed patient, in no apparent distress. SKIN: No rashes, ecchymoses or lesions. Cool and dry. HEAD: Atraumatic. Normocephalic. No temporal or scalp tenderness. EYES: Pupils equal round and reactive. Extraocular motions intact. No scleral icterus. No injection or drainage. ENT: Nose without bleeding, purulent drainage or septal hematoma. Throat without erythema, tonsillar hypertrophy or exudate. Uvula midline. Airway patent. NECK: Trachea midline. No JVD or lymphadenopathy. Supple, nontender, no meningeal signs. CARDIOVASCULAR: Regular rate and rhythm RESPIRATORY: Clear to auscultation. Breath sounds equal bilaterally. No wheezes , rales, or rhonchi. GASTROINTESTINAL: Abdomen soft, right flank and mid abdominal tenderness on palpation no rebound or guarding normoactive bowel sounds MUSCULOSKELETAL: Extremities without clubbing, cyanosis, or edema. No joint tenderness, effusion, or edema noted. No calf tenderness. Negative Homans sign bilaterally. NEUROLOGICAL: Awake and alert. Cranial nerves II through XII intact. Motor and sensory grossly within normal limits. Five out of 5 muscle strength in all muscle groups. Normal speech. Laboratory Laboratory Tests Test 07/18/17 03:40 07/18/17 05:05 White Blood Count 15.7 Red Blood Count 4.43 Hemoglobin 14.5 Hematocrit 42.0 Mean Corpuscular Volume 94.8 Mean Corpuscular Hemoglobin 32.8 Mean Corpuscular Hemoglobin Concent 34.6 Red Cell Distribution Width 13.4 Platelet Count 240 Mean Platelet Volume 7.2 Neutrophils (%) (Auto) 77.6 Lymphocytes (%) (Auto) 9.9 Monocytes (%) (Auto) 11.6 Eosinophils (%) (Auto) 0.6 Basophils (%) (Auto) 0.3 Neutrophils # (Auto) 12.2 Lymphocytes # (Auto) 1.6 Monocytes # (Auto) 1.8 Eosinophils # (Auto) 0.1 Basophils # (Auto) 0.0 CBC Comment DIFF FINAL Differential Comment Blood Urea Nitrogen 15 Creatinine 1.16 Random Glucose 101 Total Protein 6.9 Albumin 3.9 Calcium Level 8.6 Magnesium Level 2.2 Alkaline Phosphatase 71 Aspartate Amino Transf (AST/SGOT) 14 Alanine Aminotransferase (ALT/SGPT) 24 Total Bilirubin 0.7 Sodium Level 140 Potassium Level 4.0 Chloride Level 104 Carbon Dioxide Level 27.0 Anion Gap 9 Estimat Glomerular Filtration Rate 62 C-Reactive Protein 1.03 Lipase 137 Urine Color LIGHT-YELLOW Urine Turbidity CLEAR Urine pH 6.5 Urine Specific Jena 1.039 Urine Protein NEG Urine Glucose (UA) NEG Urine Ketones NEG Urine Occult Blood NEG Urine Nitrite NEG Urine Bilirubin NEG Urine Urobilinogen LESS THAN 2.0 Urine Leukocyte Esterase NEG Urine WBC 1 Urine Mucus FEW Microscopic Urinalysis Comment CULT NOT INDICATED Result Diagram: 07/18/1733907/18/17339 Imaging Last Impressions Abdomen/Pelvis CT 07/18/17358 Signed Impressions: CONCLUSION: 1. There are large cysts in both kidneys, however there is one in the right si de which demonstrates soft tissue components within it possibly complicated cys t, however a malignant mass is difficult to exclude. One of the cysts on the le ft side demonstrates is a small peripheral nodule as well and further character ization with abdominal MRI with and without contrast is recommended. 2. Right lung infiltrate. Chest X-Ray 07/18/17 [id number] Signed Impressions: CONCLUSION: No acute cardiopulmonary disease. Caprini VTE Risk Assessment Caprini VTE Risk Assessment: Mod/High Risk (score >= 2) Caprini Risk Assessment Model Point Value = 1 Point Value = 2 Point Value = 3 Point Value = 5 Age 41-60 Minor surgery BMI > 25 kg/m2 Swollen legs Varicose veins or History of unexplained or recurrent spontaneous Oral contraceptives or hormone replacement Sepsis (< 1 month) Serious lung disease, including pneumonia (< 1 month) Abnormal pulmonary function Acute myocardial infarction Congestive heart failure (< 1 month) History of inflammatory bowel disease Medical patient at bed rest Age 61-74 Arthroscopic surgery Major open surgery (> 45 min) Laparoscopic surgery (> 45 min) Malignancy Confined to bed (> 72 hours) Immobilizing plaster cast Central venous access Age >= 75 History of VTE Family history of VTE Factor V Leiden Prothrombin [id number] Lupus anticoagulant Anticardiolipin antibodies Elevated serum homocysteine Heparin-induced thrombocytopenia Other congenital or acquired thrombophilia Stroke (< 1 month) Elective arthroplasty Hip, pelvis, or leg fracture Acute spinal cord injury (< 1 month) Prophylaxis Regimen Total Risk Factor Score Risk Level Prophylaxis Regimen 0-1 Low Early ambulation 2 Moderate Order ONE of the following: *Sequential Compression Device (SCD) *Heparin 5000 units SQ BID 3-4 Higher Order ONE of the following medications: *Heparin 5000 units SQ TID *Enoxaparin/Lovenox 40 mg SQ daily (WT < 150 kg, CrCl > 30 mL/min) *Enoxaparin/Lovenox 30 mg SQ daily (WT < 150 kg, CrCl > 10-29 mL/min) *Enoxaparin/Lovenox 30 mg SQ BID (WT < 150 kg, CrCl > 30 mL/min) AND/OR *Sequential Compression Device (SCD) 5 or more Highest Order ONE of the following medications: *Heparin 5000 units SQ TID (Preferred with Epidurals) *Enoxaparin/Lovenox 40 mg SQ daily (WT < 150 kg, CrCl > 30 mL/min) *Enoxaparin/Lovenox 30 mg SQ daily (WT < 150 kg, CrCl > 10-29 mL/min) *Enoxaparin/Lovenox 30 mg SQ BID (WT < 150 kg, CrCl > 30 mL/min) AND *Sequential Compression Device (SCD) Assessment and Plan Assessment and Plan 71-year-old white male admitted for intractable right flank and abdominal pain 1. Intractable right flank abdominal pain with findings of right renal complex cyst versus mass -will obtain MRI abdomen with and without contrast for further evaluation of this mass. Continue with pain control. Obtain urology consultation further recommendations. 2. Right lung infiltrate and likely due to atelectasis as patient has no signs of active infection at this time. Discontinue IV antibiotics and start emergency room. 3. CAD, chronic - continue with aspirin Plavix and beta-slim 4. Hypertension, essential chronic -lisinopril 5. DVT prophylaxis- SCDs Due to the fact that the infiltrate is likely atelectasis and patient shows no signs of active infection or pneumonia and IV antibiotics are discontinued. Patient will be placed on observation now for continued only workup of the right continued flank pain. Juliana Morales MD July 18, 2017 12:21
[2017-07-18] MEDS ORDERED: LISINOPRIL 5 MG TAB PO SCH ×2 (13:00→21:00)
[2017-07-18] MEDS ORDERED: CLOPIDOGREL 75 MG TAB PO SCH ×2 (13:00→21:00)
--- NOTE | 2017-07-18 14:10 | EKG ---
Date Performed: 07/18/2017 Time Performed: 07:56:33 PTAGE: 71 years EKG: Sinus rhythm MODERATE INTRAVENTRICULAR CONDUCTION DELAY BORDERLINE ECG PREVIOUS TRACING : 03/19/2017 22.52 Since the previous tracing, no significant change noted DOCTOR: Zaid Finn Interpretating Date/Time 07/21/2017 07:55:25
--- NOTE | 2017-07-18 15:04 | MB ---
cc: Aaron Garcia DO DATE: 07/18/2017 HISTORY OF PRESENT ILLNESS: This is a pleasant 71-year-old male who presented with acute onset of right-sided flank pain to the emergency room. CT scan in the emergency room demonstrated large bilateral renal cysts with one on the right side demonstrating possible soft tissue components, making this possibly a more complex cyst. It appears also that there could be blood. He could have bled into the cyst on CT scan. An MRI was recommended and is currently pending. He denies any real voiding complaints. Denies any gross hematuria, history of stones or family history of prostate cancer. He is on Plavix and aspirin as he had a cardiac stent placed in February of this year. He does note nocturia 1-2 times with a moderate stream. PAST MEDICAL HISTORY: Includes coronary artery disease, hypertension, and cataracts. PAST SURGICAL HISTORY: He had umbilical hernia repair, right cataract removed and coronary artery stenting in February of 2017. MEDICATIONS: Please refer to the chart. ALLERGIES: TICAGRELOR. FAMILY HISTORY: Denies any family history of prostate cancer. SOCIAL HISTORY: Former smoker, quit in the 1980s. He denies alcohol or drug use. REVIEW OF SYSTEMS: He notes right-sided flank pain. Denies nausea or vomiting. Denies fever or chills. Denies chest pain or shortness of breath. Does note nocturia x 2. Denies gross hematuria. Denies gait disturbances, bleeding disorders. psychiatric problems. Remaining review of systems were reviewed and were negative. PHYSICAL EXAMINATION: VITAL SIGNS: Presently, temperature 98.8, heart rate 64, respiratory rate 16, 141/71 is his blood pressure, 99% on room air. GENERAL: A well-developed, well-nourished, 71-year-old male in no acute distress. HEENT: Normocephalic, atraumatic. Pupils equal, round, regular, reactive to light. Extraocular movements intact. NECK: Supple. HEART: Regular rate and rhythm. LUNGS: Clear. ABDOMEN: Soft. Mild right-sided tenderness is noted with right CVA tenderness. Normal male external genitalia is noted. EXTREMITIES: Show no cyanosis, clubbing, or edema. NEUROLOGIC: Cranial nerves 2-12 are intact. LABORATORY DATA: White count 15.7, hemoglobin 14.5, hematocrit 42.0, platelet count of 240. Sodium 140, potassium 4.0, chloride 104, CO2 27, BUN of 15, creatinine 1.1, glucose of 101. Urinalysis shows 1 white cell, negative blood, negative leukocyte esterase. Imaging study again shows a possible complicated cyst on the right side, could be possible hemorrhage versus soft tissue density. We will obtain MRI which was recommended. ASSESSMENT: A 71-year-old male with what appears to be bleeding into a cyst in the right kidney. PLAN: We will obtain an MRI to evaluate presence of mass versus blood, continue bedrest for now as well as for IV fluids. We will follow with you and thank you for the consult. DO JASPER Kaminski/ELYSE , 02:31 PM , 03:03 PM
[2017-07-18] MEDS ORDERED: GADODIAMIDE PF 287 MG/ML 10 ML VIAL (for RAD MRI) IV PUSH ONE (16:53)
--- NOTE | 2017-07-18 17:19 | RADRPT ---
EXAM DATE: 07/18/2017 5:03 PM EDT AGE/SEX: 71 years / Male INDICATIONS: Abdominal pain. Right sided abdominal pain and cyst. CLINICAL DATA: This is the patient's initial encounter. Patient reports that signs and symptoms have been present for 1 day and indicates a pain score of 6/10. MEDICAL/SURGICAL HISTORY: . Myocardial infarction. Umbilical hernia repair. Coronary artery s tent. COMPARISON: No prior [facility] exams available for comparison. TECHNIQUE: Multiplanar, multisequence images of the abdomen were obtained prior to and following adm inistration of 9 ml Omniscan (gadodiamide) contrast as a single exam dose with dynamic multiphase storm hnique. FINDINGS: Liver: The liver is normal in size and signal intensity and no focal liver lesion is identified. Ther e is no bile duct dilatation. Gallbladder: No gallstones visualized. There is no wall thickening or inflammation. Spleen: Within normal limits. Pancreas: Within normal limits. Adrenals: Within normal limits. Kidneys: There are innumerable cystic lesions of varying complexity and signal intensity bilaterally. The suspicious lesion reported on the prior study at the right upper pole measures 5.7 x 5.5 cm and demonstrates heterogeneous T2 signal and T1 signal with areas of increased T1 signal. Subtraction ayaz ging demonstrates no internal enhancement within this lesion. There are multiple additional lesions i n the right kidney which contains some degree of high T1 signal. In the left kidney there are also mu ltiple lesions containing some degree of high T1 signal most notably at the left upper pole along the lateral cortex with a lesion measuring 4.9 cm. Subtraction imaging again demonstrates no solid mass. There is perinephric fluid, right greater than left. Other: Aorta is nonaneurysmal. No lymphadenopathy is visualized. The remaining surrounding structur es demonstrate no acute abnormality. CONCLUSION: 1. There are innumerable cystic lesions of varying complexity within both kidneys. The lesion identi fied in the right kidney on recent CT has features suggesting a hemorrhagic complex cystic lesion. It demonstrates no internal enhancement to indicate that it represents a solid mass or renal cell carci noma. 2. Additionally, there are multiple additional lesions bilaterally containing some degree of blood p roducts but no enhancing lesion is seen. Given the number of lesions and complexity consider 6 month follow-up MRI to confirm stability of these findings. 3. There is prominent right perinephric fluid greater than typically seen and greater than on the le ft. Given the patient's right-sided abdominal pain, question whether one of the cystic lesions has ru ptured. Electronically signed by: Herve Asif MD 07/18/2017 5:18 PM EDT
[2017-07-18] MEDS: METOPROLOL TARTRATE 25 MG TAB PO SCH (20:09)
[2017-07-18] MEDS ORDERED: MULTIVITAMIN TAB PO SCH (21:00)
[2017-07-18] MEDS ORDERED: ATORVASTATIN 10 MG TAB PO SCH (21:00)
[2017-07-18] MEDS ORDERED: ASPIRIN 81 MG CHEW TAB PO SCH (21:00)
[2017-07-19] VITALS: BP 127/60; PULSE 64; RESP 18; TEMP 99.6; O2SAT 94
[2017-07-19 04:00] VITALS: BP 120/58; PULSE 67; RESP 16; TEMP 99.8; O2SAT 95
[2017-07-19] MEDS ORDERED: ISOSORBIDE MONONITRATE 30 MG CR TAB (IMDUR) PO SCH (07:00)
[2017-07-19 08:00] VITALS: BP 114/58; PULSE 67; RESP 18; TEMP 99.1; O2SAT 94
[2017-07-19 08:10] LABS: BASOPHIL % 0.3 % (0.0-2.0); EOSINOPHIL % 0.4 % (0.0-4.0); HEMATOCRIT 38.4 % (39.0-51.0); HEMOGLOBIN 13.4 GM/DL (13.0-17.0); LYMPH % 8.4 % (9.0-44.0); LYMPHOCYTE # 1.1 TH/MM3 (1.0-4.8); MEAN CELL VOLUME 94.5 FL (80.0-100.0); MEAN CORPUSCULAR HEMOGLOBIN 32.9 PG (27.0-34.0); MEAN CORPUSCULAR HGB CONC 34.8 % (32.0-36.0); MEAN PLATELET VOLUME 7.8 FL (7.0-11.0); MONOCYTE # 1.8 TH/MM3 (0-0.9); NEUT % 76.9 % (16.0-70.0); PLATELET COUNT 210 TH/MM3 (150-450); RED BLOOD COUNT 4.07 MIL/MM3 (4.50-5.90); RED CELL DISTRIBUTION WIDTH 13.5 % (11.6-17.2); WHITE BLOOD COUNT 13.1 TH/MM3 (4.0-11.0)
--- NOTE | 2017-07-19 08:21 | HHI.PR ---
Subjective Patient symptoms today Pt seen and examined. MRI reviewed. Pain is now minimal. Objective Vital Signs Vital Signs Date Time Temp Pulse Resp B/P (MAP) Pulse Ox O2 Delivery O2 Flow Rate FiO2 07/19/17 04:00 99.8 67 16 120/58 (78) 95 07/19/17 00:00 99.6 64 18 127/60 (82) 94 07/18/17 20:35 93 07/18/17 20:06 100.6 70 18 146/69 (94) 93 07/18/17 12:00 98.8 56 16 120/59 (79) 95 Intake & Output 07/19/17 07/19/17 07:00 19:00 Intake Total 480 ml Balance 480 ml Intake Oral 480 ml Result Diagram: 07/19/1761407/18/17 0340 Objective Remarks Abd:soft,nt,nd Voiding well. Medications and IVs Current Medications Medications (Trade) Dose Ordered Sig/Rambo Route Start Time Stop Time Status Last Admin (NS Flush) 2 ml UNSCH PRN IV FLUSH 07/18/17 06:00 (NS Flush) 2 ml BID IV FLUSH 07/18/17 09:00 07/18/17 20:14 (Tylenol) 650 mg Q4H PRN PO 07/18/17 06:00 (Lovenox Inj) 40 mg Q24H SQ 07/18/17 08:00 07/18/17 08:53 (Narcan Inj) 0.4 mg UNSCH PRN IV PUSH 07/18/17 06:00 (Milk Of Magnesia Liq) 30 ml Q12H PRN PO 07/18/17 06:00 (Senokot) 17.2 mg Q12H PRN PO 07/18/17 06:00 (Dulcolax Supp) 10 mg DAILY PRN RECTAL 07/18/17 06:00 (Lactulose Liq) 30 ml DAILY PRN PO 07/18/17 06:00 (Ultram) 50 mg Q4H PRN PO 07/18/17 12:15 (Lipitor) 10 mg HS PO 07/18/17 21:00 07/18/17 20:08 (Imdur) 30 mg DAILY@07 PO 07/19/17 07:00 07/19/17 06:15 (Lopressor) 12.5 mg BID PO 07/18/17 21:00 07/18/17 20:09 (Aspirin Chew) 81 mg HS PO 07/18/17 21:00 07/18/17 20:08 (Plavix) 75 mg HS PO 07/18/17 21:00 07/18/17 20:10 (Prinivil) 5 mg HS PO 07/18/17 21:00 07/18/17 20:09 (Theragran) 1 tab HS PO 07/18/17 21:00 07/18/17 20:09 Assessment and Plan Assessment and Plan 71 y.o male with hemorrhagic cysts without evidence of renal mass Pt can f/u in 6 months; will obtain MRI at that time Cardiac stents placed in February, would recommend holding Plavix after July (6 months on Plavix at that point in time) if ok with cardiology Aaron Garcia DO July 19, 2017 08:21
[2017-07-19 08:32] LABS: BICARBONATE 24.8 MEQ/L (21.0-32.0); CREATININE 0.89 MG/DL (0.60-1.30)
[2017-07-19] MEDS ORDERED: NON-FORMULARY DRUG (Multiple Vitamin 1 TAB) PO SCH (09:00)
[2017-07-19] MEDS ORDERED: MULTIVITAMIN TAB PO SCH (09:00)
[2017-07-19] MEDS ORDERED: ASPIRIN 81 MG CHEW TAB PO SCH (09:00)
--- NOTE | 2017-07-19 09:17 | HHI.DCPOC ---
Discharge Care Plan Diagnosis: (1) Hemorrhagic cyst Goals to Promote Your Health * To prevent worsening of your condition and complications * To maintain your health at the optimal level Directions to Meet Your Goals Take your medications as prescribed Follow your dietary instruction Follow activity as directed Follow-up of the MRI of the abdomen in 6 month Keep your appointments as scheduled Take your immunizations and boosters as scheduled If your symptoms worsen call your PCP, if no PCP go to Urgent Care Center or Emergency Room Smoking is Dangerous to Your Health. Avoid second hand smoke Call the 24-hour hour crisis hotline for domestic abuse at Juliana Morales MD July 19, 2017 09:17
[2017-07-19] MEDS: ENOXAPARIN SODIUM 40 MG/0.4 ML SYRINGE SQ SCH (09:18)
[2017-07-19] MEDS: METOPROLOL TARTRATE 25 MG TAB PO SCH (09:19)
--- NOTE | 2017-07-19 09:22 | HHI.PR ---
Subjective Remarks Right flank pain improved and not worsened. Tolerating diet. No other complaints. Wants to go home. Objective Vitals Vital Signs Date Time Temp Pulse Resp B/P (MAP) Pulse Ox O2 Delivery O2 Flow Rate FiO2 07/19/17 08:00 99.1 67 18 114/58 (76) 94 07/19/17 04:00 99.8 67 16 120/58 (78) 95 07/19/17 00:00 99.6 64 18 127/60 (82) 94 07/18/17 20:35 93 07/18/17 20:06 100.6 70 18 146/69 (94) 93 07/18/17 12:00 98.8 56 16 120/59 (79) 95 I/O 07/18/17 07/18/17 07/18/17 07/19/17 07/19/17 07/19/17 07:00 15:00 23:00 07:00 15:00 23:00 Intake Total 480 ml Balance 480 ml Intake Oral 480 ml Result Diagram: 07/19/1761407/19/17614 Objective Remarks GENERAL: This is a well-nourished, well-developed patient, in no apparent distress. CARDIOVASCULAR: Regular rate and rhythm RESPIRATORY: Clear to auscultation. Breath sounds equal bilaterally. No wheezes , rales, or rhonchi. GASTROINTESTINAL: Abdomen soft, non-tender, nondistended. Normal active bowel sounds; mild right flank tenderness; nondistended normoactive bowel sounds MUSCULOSKELETAL: Extremities without clubbing, cyanosis, or edema. NEURO: Alert & Oriented x4 to person, place, time, situation. Moves all ext x4 A/P Assessment and Plan 71-year-old white male admitted for intractable right flank and abdominal pain 1. Intractable right flank abdominal pain with findings of right renal complex cyst versus mass - MRI abdomen with and without contrast reveals right hemorrhagic renal cysts. Appreciate urology's recommendations. Urology recommends stopping the Plavix if okay with housekeeping aid after July after 6 months of being on aspirin Plavix since stent placement. Follow-up with primary care physician. Patient's pain is controlled with Tylenol.. Consider follow-up with MRI of abdomen in 6 months. 2. Right lung infiltrate and likely due to atelectasis as patient has no signs of active infection at this time. Discontinue IV antibiotics 3. CAD, chronic - continue with aspirin Plavix and beta-slim; consideration of stopping the Plavix in July after 6 months from stent placement if okay with housekeeping aid secondary to patient's history of bilateral renal cysts. 4. Hypertension, essential chronic -lisinopril, overall controlled 5. DVT prophylaxis- SCDs Discharge Planning Discharge patient to home Condition on discharge: Improved Cardiac diet as tolerated Ad Sully activity No new Rx written Follow-up with primary care physician Follow-up with MRI of the abdomen in 6 months Consideration for stopping Plavix 6 months from stent placement in July Juliana Morales MD July 19, 2017 09:22
[2017-07-19] MEDS: SODIUM CHLORIDE 0.9% FLUSH 10 ML FLUSH IV FLUSH SCH (09:24)
[2017-07-19 10:05] VITALS: O2SAT 94
[2017-07-19 16:00] VITALS: BP 102/63; PULSE 72; RESP 18; TEMP 98.3; O2SAT 98
== END 2017-07-19 10:34 | disposition home or self-care (01) ==
LOC: NEPE 03:19 → NEDA 05:54 → INTOOBSV 05:54 → OBSVTOIN 05:54 → UNDOADMOB 05:54 → OBSVTOIN 06:03 → INTOOBSV 06:03 → N06B 06:53 → NEDA 06:53
PROVIDERS: ADMIT Family Medicine; ATTEND Family Medicine
DX: N28.1 Cyst of kidney, acquired (principal); R10.9 Unspecified abdominal pain; R50.9 Fever, unspecified; I25.2 Old myocardial infarction; I25.10 Atherosclerotic heart disease of native coronary artery without angina pectoris; I10 Essential (primary) hypertension; R07.9 Chest pain, unspecified; Z79.899 Other long term (current) drug therapy; J98.11 Atelectasis; D72.829 Elevated white blood cell count, unspecified; Z95.5 Presence of coronary angioplasty implant and graft; Z79.01 Long term (current) use of anticoagulants; R35.1 Nocturia; Z87.891 Personal history of nicotine dependence; R94.31 Abnormal electrocardiogram [ECG] [EKG]
CPT/HCPCS: 71045; 74177; 74183; 80048; 80053; 81001; 83690; 83735; 85025; 86140; 93005; 99285; A9579; G0378; J0456; J1650; J2543; J7040; J7050; Q9967